=== PATIENT | male | born 1935 | race Caucasian/White ===

== ENCOUNTER 2019-05-05 15:42 | Inpatient (IN) | payer OTHER, BC ==
[~2019-05-05] VITALS: Ht 180.3 cm; Wt 68.5 kg
[2019-05-05 15:43] VITALS: BP 126/78
[2019-05-05 16:21] LABS: HEMATOCRIT 41.7 % (42.0-52.0); MCH 33.1 pg (26.0-34.0); MCHC 33.6 g/dL (28.0-37.0); MCV 98.6 fL (80.0-100.0); PLATELET COUNT 258 thou/uL (150-400); RBC 4.23 mil/uL (4.50-6.00); RDW 14.3 % (10.5-14.5); WBC 10.4 thou/uL (4.0-11.0)
[2019-05-05 16:29] LABS: ANION GAP 4 mmol/L (7-16); BUN 18 mg/dL (7-18); CHLORIDE 98 mmol/L (98-107); CO2 31 mmol/L (21-32); CREATININE 1.1 mg/dL (0.7-1.3); GLUCOSE 117 mg/dL (74-106); POTASSIUM 4.2 mmol/L (3.5-5.1); SODIUM 133 mmol/L (136-145)
[2019-05-05 16:37] LABS: ABSOLUTE NEUTROPHILS 7.6 thou/uL (1.4-8.2); ANISOCYTOSIS 1+; LARGE PLATELETS OCCASIONAL
[2019-05-05 16:38] LABS: POLYCHROMASIA OCCASIONAL
[2019-05-05 16:39] LABS: ALBUMIN 2.6 g/dL (3.4-5.0); MAGNESIUM 1.8 mg/dL (1.8-2.4); SGOT 34 U/L (15-37); SGPT 22 U/L (30-65); TOTAL BILIRUBIN 0.7 mg/dL (<0.1-1.0); TROPONIN-I <0.06 ng/mL (<0.06)
[2019-05-05] MEDS ORDERED: PROTONIX40 M1 PO ×2 (18:27→18:28)
[2019-05-05] MEDS ORDERED: SPIRIVA INH (18:28)
[2019-05-05] MEDS ORDERED: PLAVIX 75 MG TA75 M1 PO (18:29)
[2019-05-05] MEDS ORDERED: XALATAN2.5 ML OPHTHALMIC (18:29)
[2019-05-05] MEDS ORDERED: RANITIDINE 150150 M1 PO (18:29)
[2019-05-05] MEDS ORDERED: AZELASTINE137 MCG/0. NASAL (18:32)
[2019-05-05 19:28] LABS: ALBUMIN 2.8 g/dL (3.4-5.0); TOTAL PROTEIN 6.6 g/dL (6.4-8.2)
[2019-05-05 19:31] VITALS: BP 171/86
[2019-05-05 19:41] VITALS: BP 156/79
[2019-05-05 19:54] LABS: TSH 1.7 uIU/mL (0.358-3.740)
[2019-05-05 20:20] VITALS: BP 145/78
[2019-05-05 23:50] VITALS: BP 142/82
[2019-05-06 04:21] VITALS: BP 137/73
[2019-05-06 05:00] LABS: HEMATOCRIT 38.2 % (42.0-52.0); HEMOGLOBIN 12.7 gm/dL (14.0-18.0); MCH 33.2 pg (26.0-34.0); MCHC 33.4 g/dL (28.0-37.0); MCV 99.4 fL (80.0-100.0); RBC 3.84 mil/uL (4.50-6.00); RDW 14.6 % (10.5-14.5); WBC 8.5 thou/uL (4.0-11.0)
[2019-05-06 05:16] LABS: CALCIUM 8.7 mg/dL (8.5-10.1); CREATININE 1.2 mg/dL (0.7-1.3); MAGNESIUM 1.9 mg/dL (1.8-2.4); POTASSIUM 4.6 mmol/L (3.5-5.1)
[2019-05-06 07:49] VITALS: BP 116/71
--- NOTE | 2019-05-06 08:12 | EKG ---
[address] [place] [address] ELECTROCARDIOGRAM REPORT Name: RESENDIZJIMMYLAURIE MONTERROSO Room #: 359-P ADM IN M.R.#: [id number] Admission: 05/05/19 Attend Phys: Willian Villegas MD Discharge: Date of : 33 Report #: [id number] THIS REPORT FOR: //name// [facility] ED Test Date: 2019-05-05 Test Time: 16:06:20 Pat Name: JIMMY RESENDIZ Department: Room: 359 Gender: M Multimedia Production Assistant: : 1935 Requested By: June Persaud Order Number: [id number] MD: Fortino Rodriguez Measurements Intervals [place] Rate: 86 P: 47 OK: 142 QRS: 19 QRSD: 94 T: 46 QT: 372 QTc: 445 Interpretive Statements Sinus arrhythmia Normal tracing No previous ECG available for comparison Electronically Signed On 05-06-2019 8:11:50 CDT by Fortino Rodriguez [email or web address] <ELECTRONICALLY SIGNED> By: Fortino Rodriguez MD, [facility] 05/06/19 0811 1606 [id number] Fortino Rodriguez MD, FACC /EPI
[2019-05-06] MEDS ORDERED: CENTRUM SILVER1 EAC4 PO (08:22)
[2019-05-06 15:39] VITALS: BP 142/69
[2019-05-06 19:10] VITALS: BP 140/72
[2019-05-07 03:30] VITALS: BP 144/82
[2019-05-07 05:40] LABS: HEMATOCRIT 35.7 % (42.0-52.0); HEMOGLOBIN 11.7 gm/dL (14.0-18.0); MCH 32.2 pg (26.0-34.0); MCHC 32.6 g/dL (28.0-37.0); MCV 98.7 fL (80.0-100.0); RBC 3.62 mil/uL (4.50-6.00); RDW 14.6 % (10.5-14.5)
[2019-05-07 05:48] LABS: WBC 29.5 thou/uL (4.0-11.0)
[2019-05-07 06:03] LABS: CALCIUM 8.8 mg/dL (8.5-10.1); POTASSIUM 5.2 mmol/L (3.5-5.1)
--- NOTE | 2019-05-07 07:16 | HC ---
[facility] [place] [address] CONSULTATION Name: MARTÍNJIMMYLAURIE MONTERROSO Room #: 359-P ADM IN M.R.#: [id number] Admission: 05/05/19 Attend Phys: Willian Villegas MD Discharge: Date of : 33 Report #: [id number] THIS REPORT FOR: //name// CC: John Dejesus MD REASON FOR CONSULTATION: Abnormal CT and history of cancer. HISTORY OF PRESENT ILLNESS: The patient is an 83-year-old male followed by Dr. Shaq Escobar who gives a history of having had over the last 2 months progressive shortness of air, requiring higher amounts of oxygen. He denies any fever, does have a slight cough, mostly nonproductive and it is not that bad. No swallowing difficulties. No new arm or leg swelling. Does have a slightly dry, slightly sore throat, but it may be more from the breathing, slightly sore ribs sometimes. No new constipation, no new diarrhea. No new skin rash. No new leg swelling. He had a CAT scan done here that raises the question about, without comparison, extensive fibrotic changes throughout the lungs bilaterally without focal consolidating infiltrate or pleural effusion. They did see mediastinal and hilar adenopathy concerning for metastatic disease. Note, though that we do not have a CAT scan from , the report from 02/24/2019 talking about progression of peripheral and basal predominant honeycombing architectural distortion, stable mediastinal lymphadenopathy with some examples and we will gate this for comparison. PAST MEDICAL HISTORY: The patient has a history of pancreatic cancer, the tail of pancreas in 2002, underwent resection at [facility] including nephrectomy and splenectomy. Postoperatively, he had adjuvant chemo and radiation therapy and has been nonrecurrent. 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 He had resection. 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 No adjuvant therapy. In 02/2011, he had a lung recurrence of an adenocarcinomatous nodule, etiology unclear, underwent CyberKnife and has been disease free. In 01/2015, He had a bronchoscopy and in 06/2015, He was seen by GI for abdominal discomfort, a CT chest revealed increased mediastinal adenopathy. He had a ____ SUV of 7.3. He had a bronchoscopy and EBUS of mediastinal lymph nodes that have been negative and he has been followed since then, not knowing for sure whether this is reactive or inflammatory, but has been mostly stable, it is my understanding. He also has a history of sleep apnea. He uses CPAP at night. He also has a history of pulmonary fibrosis, has a history of COPD, has a history of coronary [facility] [address] [facility] [place] [address] CONSULTATION Name: JIMMY RESENDIZ Room #: 359-P [facility] IN M.R.#: [id number] Admission: 05/05/19 Attend Phys: Willian Villegas MD Discharge: Date of : 33 Report #: [id number] artery disease, status post stent in the past and then a celiac artery stent. SOCIAL HISTORY: Tobacco: Never smoker. Alcohol: None. PHYSICAL EXAMINATION: GENERAL: The patient appears his stated age. He is very conversant. His is present. VITAL SIGNS: Height is 5 feet 11 inches, which is 180.3 cm. Weight is 151 pounds, which is 68.5 kilograms. Blood pressure is 116/71, O2 sat of 93%, pulse 103, respirations 20 and temperature 97.5. MOOD: The patient is alert and very pleasant, conversant. LUNGS: He has distant lung sounds. I do not hear any Velcro type sounds. HEART: Appears regular rate. LYMPHATICS: No enlarged lymph nodes in the supraclavicular, cervical, axillary or inguinal region. ABDOMEN: Mostly soft. CHEST: He does have some rib changes along the left costochondral border, which he says is chronic in nature. EXTREMITIES: Without clubbing, cyanosis or edema. LABORATORY DATA: Here shows electrolytes normal, BUN 17, creatinine 1.2, glucose 117. Transaminases normal. Alkaline phosphatase 124, albumin 2.8. White count 10.4, hemoglobin 12.7, and platelets 261. Differential mostly unremarkable. TSH 1.7. Sed rate 65. Vitamin B12 is 478. CAT scan done here raised the question of the extensive fibrotic changes in the lymph nodes. ASSESSMENT AND PLAN: 1. Abnormal CT chest. We will ask that CT scan from be clouded over, I have already placed an order for comparison by [place] radiologist. 2. History of multiple cancers including the pancreatic cancer in 2002, melanoma in 2005, lung cancer in 2009 and 2011 nonrecurrent. 3. History of mediastinal and other adenopathy since about 2014, had been reportedly stable. We will await comparison films done here. 4. Pulmonary fibrosis. We will defer to Pulmonary. I am afraid that this may be progressive pulmonary fibrosis. The patient is now on continuous oxygen, did receive steroids last night, no antibiotics and I also do not see a clear indication for antibiotics at this time. 5. Weight loss and low albumin. The patient is trying to keep with diet. We need to encourage supplements. We will follow with you. 6. Coronary artery disease and stents. We will defer to others restarting some of his medications. Please continue clopidogrel. 7. Glaucoma, latanoprost as needed. <ELECTRONICALLY SIGNED> By: Bernard Angelo MD 05/07/19 0716 0926 0226 Bernard Angelo MD /nt
[2019-05-07 07:33] VITALS: BP 150/70
[2019-05-07 12:04] VITALS: BP 146/78
[2019-05-07 15:36] VITALS: BP 125/61
[2019-05-07 19:30] VITALS: BP 150/82
[2019-05-08 04:35] LABS: HEMATOCRIT 37.5 % (42.0-52.0); HEMOGLOBIN 11.9 gm/dL (14.0-18.0); MCH 31.4 pg (26.0-34.0); MCHC 31.7 g/dL (28.0-37.0); MCV 99.1 fL (80.0-100.0); RBC 3.79 mil/uL (4.50-6.00); RDW 14.8 % (10.5-14.5); WBC 24.3 thou/uL (4.0-11.0)
[2019-05-08 04:46] LABS: CALCIUM 8.9 mg/dL (8.5-10.1); MAGNESIUM 2.1 mg/dL (1.8-2.4); POTASSIUM 4.9 mmol/L (3.5-5.1)
[2019-05-08 04:50] VITALS: BP 153/99
[2019-05-08 08:35] VITALS: BP 144/82
[2019-05-08 15:29] VITALS: BP 133/75
[2019-05-08 19:57] VITALS: BP 128/75
[2019-05-09 04:10] VITALS: BP 145/87
[2019-05-09 05:27] LABS: CALCIUM 8.9 mg/dL (8.5-10.1); CREATININE 0.9 mg/dL (0.7-1.3); POTASSIUM 4.7 mmol/L (3.5-5.1)
[2019-05-09 05:38] LABS: HEMATOCRIT 37.9 % (42.0-52.0); HEMOGLOBIN 12.5 gm/dL (14.0-18.0); MCH 32.4 pg (26.0-34.0); MCV 98.4 fL (80.0-100.0); RBC 3.85 mil/uL (4.50-6.00); RDW 14.4 % (10.5-14.5); WBC 17.9 thou/uL (4.0-11.0)
[2019-05-09 07:30] VITALS: BP 137/92
[2019-05-09 16:21] VITALS: BP 153/98
[2019-05-09 19:50] VITALS: BP 151/84
[2019-05-10 04:45] VITALS: BP 150/82
[2019-05-10 05:49] LABS: ABSOLUTE NEUTROPHILS 13.2 thou/uL (1.4-8.2); HEMATOCRIT 38.5 % (42.0-52.0); HEMOGLOBIN 12.5 gm/dL (14.0-18.0); LYMPHOCYTES 3.7 % (24.0-44.0); MCHC 32.5 g/dL (28.0-37.0); MCV 98.3 fL (80.0-100.0); MONOCYTES 5.7 % (1.0-8.0); PLATELET COUNT 317 thou/uL (150-400); POLYS 90.6 % (36.0-66.0); RBC 3.92 mil/uL (4.50-6.00); RDW 14.3 % (10.5-14.5); WBC 14.6 thou/uL (4.0-11.0)
[2019-05-10 06:15] LABS: ALBUMIN 2.3 g/dL (3.4-5.0); CALCIUM 8.8 mg/dL (8.5-10.1); POTASSIUM 4.6 mmol/L (3.5-5.1); TOTAL BILIRUBIN 0.5 mg/dL (<0.1-1.0); TOTAL PROTEIN 5.6 g/dL (6.4-8.2)
[2019-05-10 08:06] VITALS: BP 176/93
--- NOTE | 2019-05-10 08:10 | EKG ---
[place] [address] [facility] [place] [address] ELECTROCARDIOGRAM REPORT Name: JIMMY RESENDIZ Room #: 359-P ADM IN M.R.#: [id number] Admission: 05/05/19 Attend Phys: iWllian Villegas MD Discharge: Date of : 33 Report #: [id number] THIS REPORT FOR: //name// [facility] Test Date: 2019-05-09 Test Time: 12:20:56 Pat Name: JIMMY RESENDIZ Department: Room: 359 P Gender: M Recruitment Internship: jlambertz : 1935 Requested By: Willian Villegas Order Number: [id number] MD: Fortino Rodriguez Measurements Intervals [place] Rate: 71 P: 43 VT: 134 QRS: 10 QRSD: 101 T: 23 QT: 380 QTc: 413 Interpretive Statements Sinus rhythm Premature ventricular and supraventricular complexes Compared to ECG 05/05/2019 16:06:20 Atrial premature complex(es) now present Ventricular premature complexes are now present Electronically Signed On 05-10-2019 8:10:20 CDT by Fortino Rodriguez [email or web address] <ELECTRONICALLY SIGNED> By: Fortino Rodriguez MD, [facility] 05/10/19 0810 1220 1220 Fortino Rodriguez MD, [facility] /EPI
--- NOTE | 2019-05-10 12:08 | 2DMMODE ---
[facility] [place] [address] 2 D/M-MODE ECHOCARDIOGRAM Name: JIMMY RESENDIZ Room #: 359-P [facility] IN M.R.#: [id number] Admission: 05/05/19 Attend Phys: Willian Villegas, Discharge: Date of : 33 Date of Service: 05/10/19 1207 Report #: [id number] THIS REPORT FOR: //name// APPROVED REPORT Study performed: 05/10/2019 11:18:38 EXAM: Comprehensive 2D, Doppler, and color-flow Echocardiogram Patient Location: Echo lab Room #: 359 Status: routine BSA: 1.87 HR: 71 bpm BP: 176/93 mmHg Rhythm: NSR/irregular Other Information Study Quality: Adequate Technically limited study due to lung disease. Indications Short of breath. Hx: COPD, cardiac stents, PVD, CA. 2D Dimensions RVDd: 34.79 mm IVSd: 10.67 (7-11mm) LVOT Diam: 20.80 (18-24mm) LVDd: 46.52 mm PWd: 11.33 (7-11mm) LVDs: 35.02 (25-40mm) Aortic Root: 34.93 mm Volumes Left Atrial Volume (Systole) Single Plane 4CH: 65.42 mL Single Plane 2CH: 70.14 mL LA ESV Index: 38.00 mL/m2 Aortic Valve AoV Peak Kamran.: 1.36 m/s AO Peak Gr.: 7.43 mmHg LVOT Max P.24 mmHg LVOT Max V: 1.03 m/s LUIS DANIEL Vmax: 2.56 cm2 Mitral Valve E/A Ratio: 0.8 MV Decel. Time: 203.31 ms [facility] [place] [address] [place] [address] 2 D/M-MODE ECHOCARDIOGRAM Name: MARTÍNJIMMYLAURIE MONTERROSO Room #: 359-P [facility] IN .R.#: [id number] Admission: 05/05/19 Attend Phys: Willian Villegas, Discharge: Date of : 33 Date of Service: 05/10/19 1207 Report #: [id number] MV E Max Kamran.: 0.66 m/s MV A Kamran.: 0.86 m/s MV PHT: 58.96 ms IVRT: 59.98 ms Pulmonary Valve PV Peak Kamran.: 0.56 m/s PV Peak Gr.: 1.24 mmHg Tricuspid Valve TR Peak Kamran.: 3.61 m/s RAP Estimate: 5.00 mmHg TR Peak Gr.: 52.17 mmHg PA Pressure: 57.00 mmHg Left Ventricle The left ventricle is normal size. There is normal LV segmental wall motion. There is normal left ventricular wall thickness. Left ventricular systolic function is normal. LVEF is 55-60%. Mild diastolic dysfunction is present (impaired relaxation pattern). Right Ventricle The right ventricle is normal size. The right ventricular systolic function is normal. Atria Left atrium is mildly dilated. The right atrium size is normal. Aortic Valve Aortic valve is calcified. Trace to mild aortic regurgitation. There is no aortic valvular stenosis. Mitral Valve Mitral valve leaflets are thickened. Mild mitral annular calcification. Moderate mitral regurgitation. Tricuspid Valve The tricuspid valve is normal in structure. Mild tricuspid regurgitation. Estimated PAP is 55-60mmHg. Pulmonic Valve Pulmonic valve is not well visualized. Great Vessels The aortic root is normal in size. Ascending aorta is not well visualized. IVC is normal in size and collapses >50% with [facility] [address] [place] [address] 2 D/M-MODE ECHOCARDIOGRAM Name: JIMMY RESENDIZ Room #: 359-P ADM IN M.R.#: [id number] Admission: 05/05/19 Attend Phys: Willian Villegas, Discharge: Date of : 33 Date of Service: 05/10/19 1207 Report #: [id number] inspiration. Pericardium No pericardial effusion. <Conclusion> The left ventricle is normal size. LVEF is 55-60%. Left atrium is mildly dilated. Aortic valve is calcified. Trace to mild aortic regurgitation. Mitral valve leaflets are thickened. Mild mitral annular calcification. Moderate mitral regurgitation. The tricuspid valve is normal in structure. Mild tricuspid regurgitation. Estimated PAP is 55-60mmHg. Pulmonic valve is not well visualized. No pericardial effusion. <ELECTRONICALLY SIGNED> By: Cal العلي MD 05/10/197 06 06 Cal العلي MD /INF
[2019-05-10 16:56] VITALS: BP 152/75
[2019-05-10 20:10] LABS: ANA INTERPRETATION Positive (())
[2019-05-10 20:45] VITALS: BP 173/80
[2019-05-11 04:45] VITALS: BP 135/68
[2019-05-11 08:12] VITALS: BP 135/64
[2019-05-11] MEDS ORDERED: PULMICORT0.5 MG/21 INH (12:10)
[2019-05-11] MEDS ORDERED: CARVEDILOL3.125 MG PO (12:10)
[2019-05-11] MEDS ORDERED: LEVALBUTER0.63 MG/3 INH ×2 (12:10)
[2019-05-11] MEDS ORDERED: IPRATROPIU0.2 MG/1 M INH ×2 (12:10)
[2019-05-11] MEDS ORDERED: MUCINEX600 MG PO (12:10)
[2019-05-11] MEDS ORDERED: SOLU-MEDRO40 MG/1 M1 IV PUSH (12:13)
[2019-05-11 15:16] VITALS: BP 154/81
[2019-05-11 17:45] VITALS: BP 154/81
[2019-05-11 22:06] LABS: ADENOVIRUS Negative (Negative); INFLUENZA A Negative (Negative); INFLUENZA B Negative (Negative); METAPNEUMOVIRUS Negative (Negative); PARAINFLUENZA 1 Negative (Negative); PARAINFLUENZA 2 Negative (Negative); PARAINFLUENZA 3 Negative (Negative); RHINOVIRUS Negative (Negative); RSV A Negative (Negative); RSV B Negative (Negative)
== END 2019-05-11 18:24 | DRG 189 ==
LOC: ER 15:42 → 3W 18:49 → EROBS 18:49 → 3W 18:49
PROVIDERS: Pediatrics; Physician Assistant; ADMIT Internal Medicine
DX: J96.21 Acute and chronic respiratory failure with hypoxia (principal); J18.1 Lobar pneumonia, unspecified organism; E43 Unspecified severe protein-calorie malnutrition; J96.22 Acute and chronic respiratory failure with hypercapnia; J43.9 Emphysema, unspecified; I25.10 Atherosclerotic heart disease of native coronary artery without angina pectoris; J84.10 Pulmonary fibrosis, unspecified; H40.9 Unspecified glaucoma; K21.9 Gastro-esophageal reflux disease without esophagitis; R59.0 Localized enlarged lymph nodes; T38.0X5A Adverse effect of glucocorticoids and synthetic analogues, initial encounter; D72.829 Elevated white blood cell count, unspecified; I10 Essential (primary) hypertension; Z68.21 Body mass index [BMI] 21.0-21.9, adult; Z90.2 Acquired absence of lung [part of]; Z85.07 Personal history of malignant neoplasm of pancreas; Z87.891 Personal history of nicotine dependence; Z90.5 Acquired absence of kidney; Z90.81 Acquired absence of spleen; Z92.21 Personal history of antineoplastic chemotherapy; Z92.3 Personal history of irradiation; Z85.820 Personal history of malignant melanoma of skin; Z85.118 Personal history of other malignant neoplasm of bronchus and lung; Z95.5 Presence of coronary angioplasty implant and graft; Z79.02 Long term (current) use of antithrombotics/antiplatelets; Z79.899 Other long term (current) drug therapy; Y92.89 Other specified places as the place of occurrence of the external cause
CPT/HCPCS: 10879

== ENCOUNTER 2019-05-11 14:55 | Inpatient (IN) | payer OTHER, BC ==
[~2019-05-11] VITALS: Ht 180.3 cm; Wt 68.5 kg
--- NOTE | ~2019-05-11 | H ---
[facility] [place] [address] HISTORY AND PHYSICAL Name: JIMMY RESENDIZ Room #: PRE IN M.R.#: [id number] Admission: Attend Phys: Rashaun Thorne MD Discharge: Date of : 33 Report #: [id number] THIS REPORT FOR: //name// CC: John Thorne DATE OF SERVICE: 05/11/2019 HISTORY OF PRESENT ILLNESS: This is an 83-year-old male admitted to the hospital with qdgza-cb-isvowfw respiratory failure. At home, he requires 2 liters of O2. His oxygen was increased from 5 to 8 liters here at the hospital, he is requiring IV steroids and nebulizers. He is being followed by Pulmonary Services, Hospitalist services and Oncology along with Geriatrics. The patient has history of lung cancer, pancreatic cancer and melanoma. He was seen to have a hilar/mediastinal lymphadenopathy for which Dr. Angelo believes is stable at this time. Due to his decline in functional mobility, we are admitting to inpatient rehab for further physical and occupational therapies along with the medical management. Today, the patient reports ongoing shortness of air and poor endurance due to his respiratory status. He denies any coughing or chest pain. He denies headache or dizziness. He denies nausea, vomiting or constipation. He reports appetite is fair. He denies any other pains. PAST MEDICAL HISTORY: Pancreatic cancer in 2002, melanoma 2005, lobectomy on the right side 2009, CyberKnife to middle lobe on the right side 2010, cardiac stents 2017. Celiac artery stent 2019, pulmonary fibrosis, COPD. HABITS: He is a nonsmoker. No alcohol use. CODE STATUS: Full code. SOCIAL HISTORY: The patient lives at home with his . He lives a very active lifestyle. He does yard work, he goes to anabaptism. He is very active in the community. He was independent with ADLs and IADLs. He utilized no assistive device. He denies any history of falls. The patient still drives. He does have a CPAP for bedtime at home. ALLERGIES: No known drug allergies. CURRENT MEDICATIONS: Colace 100 mg p.r.n., Tylenol 650 q.4 hours p.r.n., Solu-Medrol 40 mg t.i.d. IV push, Protonix 40 mg twice a day, Xopenex q.4 hours while awake, budesonide 0.5 mg b.i.d. DuoNeb q.4 hours, Coreg 3.125 mg twice a day, Plavix 75 mg daily, Mucinex 1200 mg twice a day, Lovenox 30 mg subcutaneous at bedtime, latanoprost 1 drop at bedtime eyes, MiraLax 17 grams p.r.n. REVIEW OF SYSTEMS: Remainder of his 12-point review of systems is negative except as listed in HPI. [address] [address] HISTORY AND PHYSICAL Name: JIMMY RESENDIZ Room #: PRE IN ..#: [id number] Admission: Attend Phys: Rashaun Thorne MD Discharge: Date of : 33 Report #: [id number] PHYSICAL EXAMINATION: VITAL SIGNS: 154/81, respirations 20, pulse 79, temperature 97.6. He is 97% O2 sat on 6 liters. GENERAL: He is awake, alert. He is oriented x 4. He is in no acute distress. He is able to talk in full sentences while at rest. HEENT: Head is normocephalic. Eyes: EOMs are intact. No icterus. ENT: No sinus tenderness, no pharyngitis. CHEST: Lungs are diminished and tight throughout. CARDIAC: Regular rate and rhythm. S1, S2. ABDOMEN: Bowel sounds are positive. Soft, nontender, nondistended. GENITOURINARY: No CVA tenderness. EXTREMITIES: Functional range of motion upper and lower extremities. Pill Coater are equal. Upper extremity strength is grossly 4/5, able to lift lower extremities antigravity. No calf tenderness. Negative Homans sign. No edema. Sit to stand with standby assist. He is min assist to ambulate 50 feet with no assistive device. His O2 sat does drop into the 70s. He takes over 3 minutes to recover having to increase his O2 up to 8 liters. The patient requires cues for energy conservation due to O2 sat dropping. NEUROLOGIC: Cranial nerves 2-12 grossly intact. SKIN: Warm, dry and intact. PSYCHIATRIC: Pleasant affect. ASSESSMENT: 1. Ojcko-ch-dzgmqrm respiratory failure secondary to pulmonary fibrosis. 2. Acute exacerbation of chronic obstructive pulmonary disease. 3. Pulmonary rehabilitation. 4. Severe protein calorie malnutrition. 5. Mediastinal and hilar lymphadenopathy. 6. History of pancreatic cancer. 7. History of lung cancer. 8. History of melanoma. 9. History of coronary artery disease. PLAN: The patient has been admitted to acute inpatient rehabilitation for physical and occupational therapies. He will continue to have his customer care voice consultant follow along with Oncology, hospitalist, Geriatrics and a Neuropsychology evaluation. He will have respiratory therapy treatments throughout the day. We will work on titrating his oxygen to maintain O2 sat greater than 90% with and without activity. He will have incentive spirometry for further prophylaxis. He will have SCDs and Lovenox. The patient will be on fall precautions with chair and bed alarms in place. He will have a dietitian consult to help with [facility] [place] [address] [address] [place] [address] HISTORY AND PHYSICAL Name: JIMMY RESENDIZ Room #: PRE IN M.R.#: [id number] Admission: Attend Phys: Rashaun Thorne MD Discharge: Date of : 33 Report #: [id number] his weight loss. He will have a team conference next Friday. Please see extensive orders. By: 1658 1716 OXANA Shirley /nt
[~2019-05-11 14:55] MED LIST: AZELASTINE137 MCG/0. NASAL; CARVEDILOL3.125 MG PO; CENTRUM SILVER1 EAC4 PO; IPRATROPIU0.2 MG/1 M INH; LEVALBUTER0.63 MG/3 INH; MUCINEX600 MG PO; PLAVIX 75 MG TA75 M1 PO; PROTONIX40 M1 PO; PULMICORT0.5 MG/21 INH; RANITIDINE 150150 M1 PO; SOLU-MEDRO40 MG/1 M1 IV PUSH; SPIRIVA INH; XALATAN2.5 ML OPHTHALMIC
[2019-05-11 18:30] VITALS: BP 147/67
[2019-05-11 19:50] VITALS: BP 155/77
--- NOTE | 2019-05-12 03:11 | NUR ---
pt arrived to unit approx 1830 on . recd report from day RN. pt in room sitting up in recliner, 02 at 5l per n/c. pt alert and oriented x4, appropriate and cooperative. spouse here with pt and left approx 1999. pt pleasant and cooperative. pt up to bathroom with standby assist and O2. pt took hs meds with water tolerating well. pt appears to be sleeping soundly with hourly rounding checks. bed alarm on and call light in reach. will continue to monitor.
[2019-05-12 06:20] LABS: HEMATOCRIT 41.4 % (42.0-52.0); HEMOGLOBIN 13.4 gm/dL (14.0-18.0); MCHC 32.4 g/dL (28.0-37.0); MCV 98.7 fL (80.0-100.0); RBC 4.19 mil/uL (4.50-6.00); RDW 13.9 % (10.5-14.5); WBC 16.5 thou/uL (4.0-11.0)
[2019-05-12 06:32] LABS: CALCIUM 8.9 mg/dL (8.5-10.1); CREATININE 0.9 mg/dL (0.7-1.3); POTASSIUM 4.5 mmol/L (3.5-5.1)
[2019-05-12 07:45] VITALS: BP 151/76
--- NOTE | 2019-05-12 10:34 | NUR ---
ASSUMED CARE AT 0700. PATIENT IS ALERT AND ORIENTED X4. PATIENT KENNY'S, CONTOUR STITCHER ARE EQUAL. LUNGS ARE CLEAR. ABD IS SOFT WITH BSX4. UP TO BSC TO VOID MARIO COLORED URINE. UP IN W/C FOR MEALS. FALL AND SAFETY PROTOCOLS IN PLACE. DENIES PAIN AT THIS TIME. CONTINUES T0 PROGRESS TOWARDS D/C GOALS. WILL CONTINUE TO MONITER.
--- NOTE | 2019-05-12 10:48 | NUR ---
ASSUMED CARE AT 0700. PATIENT IS ALERT AND ORIENTED X4. PATIENT KENNY'S. EVAL DONE BY PRand. PATIENT IS NOW MOD/I IN ROOM. LUNGS ARE COARSE AND DEMINISHED IN THE BASES ON THE LEFT. PATIENT CONTINUES ON RESPIRATORY TX. ABD IS SOFT WITH BSX4. PATIENT HAD BM TODAY. UP ON SIDE OF THE BED FOR MEALS. FALL AND SAFETY PROTOCOLS IN PLACE. DENIES ANY PAIN AT THIS TIME. 02 AT 5L PER N/C. 02 INCREASED TO 6L WITH AMBULATION. WILL CONTINUE TO MONITER.
--- NOTE | 2019-05-12 13:26 | NUR ---
chart review, pt was independ prior to hospital. pt lives with spouse, with steps, and stairs. he had to have increased needs for more oxygen. has home oxygen and cpap at home. still drives and manage own medication. no past rehab or hh in past, per chart. will cont following as needed for dc needs.
[2019-05-12 19:20] VITALS: BP 121/54
[2019-05-13 00:08] LABS: GLYCOHEMOGLOBIN (HGB A1C) 6.4 % (4.8-5.6)
--- NOTE | 2019-05-13 03:42 | NUR ---
ASSUMED CARES AT 1900. PT AWAKE, ALERT AND ORIENTED*4. DENIES PAIN. VITALS REMAIN STABLE. LS CLEAR/ DIMINISHED, O2 SATS >92% ON 5L OXYGEN VIA NC. PT RECEIVING BREATHING RX AND CPT SCHEDULED. CLOTRIMAZOLE ADMINISTERED SCHEDULED FOR ORAL YEAST INFECTION. IV ON LEFT UPPER ARM REMAINS INTACT AND PATENT, SOLUMEDROL ADMINSITERED SCHEDULED. PT IS MODIFIED INDEPENDENT IN ROOM, ROOM NEAR NURSE'S DESK. FREQUENT VISUAL CHECKS. CALL LIGHT WITHIN REACH
[2019-05-13 07:50] VITALS: BP 138/68
[2019-05-13 12:00] VITALS: BP 128/66
--- NOTE | 2019-05-13 19:34 | NUR ---
ASSUMED CARE OF PT AT 0715. PT IS A&OX4. BRADYCARDIC THIS SHIFT AND CARVEDILOL WAS HELD THIS MORNING, PT IS ASYMPTOMATIC, PROVIDER AWARE. PT SITTING AT BEDSIDE MOST OF SHIFT WITH FAMILY AND FRIENDS THROUGHOUT SHIFT. PT DENIES PAIN AND PARTICIPTED IN SCHEDULED THERAPIES. MOD I IN ROOM. O2 >90% ON 5-6L O2 VIA NC. IV IN RIGHT UPPER ARM IS WITHOUT REDNESS, EDEMA, OR DRAINAGE, DRESSING IS C/D/I, FLUSHES APPROPRIATELY. ENCOURAGED FLUIDS AND NUTRITION. FALL PRECAUTIONS IN PLACE AND NURSING WILL CONTINUE TO MONITOR.
[2019-05-13 20:25] VITALS: BP 145/65
--- NOTE | 2019-05-14 02:09 | NUR ---
ASSUMED CARES AT 1900. PT AWAKE, ALERT AND ORIENTED*4. SOB NOTED WITH EXERCION. PT DESATS TO LOW 80'S WITH ACTIVITY NEEDING 6-8L OF OXYGEN, TAKES 1-2MINS AFTER REST FOR SATS TO STABILIZE. LS COARSE, PT HAD A PRODUCTIVE COUGH. BREATHING TREATMENTS ADMINISTERED SCHEDULED. ON 5L OXYGEN WHEN ASLEEP AND TOLERATES WELL. ALL OTHER VITALS REMAIN STABLE. PT SLEPT WELL THROUGH THE NIGHT. DENIES PAIN. PT REMAINS MOD I. IN ROOM. FREQUENT VISUAL CHECKS. CALL LIGHT WITHIN REACH.
[2019-05-14 07:30] VITALS: BP 148/82
--- NOTE | 2019-05-14 17:58 | NUR ---
ASSUMED CARE OF PT AT 0715. PT IS A&OX4 AND VITAL SIGNS ARE STABLE. ACCU CHECKS ACHS AND MANAGED WITH INSULIN PER ORDERS. MOD I IN ROOM. NURSING WORKING TO WEAN PT O2. 5-6L AT START OF SHIFT NOW ON 3L NC AT REST MAINTINING SATS AT 94-96%. REQUEST 1 HR BETWEEN THERAPY SESSIONS TO ALLOW FOR ADEQUATE REST PERIODS. DENIES PAIN AND PARTICIPATED IN SCHEDULED THERAPIES. IV IN L UPPER ARM IS WITHOUT DRAINAGE, REDNESS, OR EDEMA, DRESSING C/D/I, FLUSHES APPRIOPRAITELY. FALL PRECAUTIONS IN PLACE AND NURSING WILL CONTINUE TO MONITOR.
[2019-05-14 20:00] VITALS: BP 142/71
--- NOTE | 2019-05-15 02:00 | NUR ---
assumed care at approx 1900 evening 05/14. pt alert and oriented x4, pleasant and cooperative. 02 at 3L per n/c. pt modified indep in his room tolerating well. pt tolerated hs meds with no problems. pt appears to be sleeping off and on getting up to go to the bathroom. pt close to the nurses station and call light in reach. will continue to monitor.
[2019-05-15 08:00] VITALS: BP 151/83
--- NOTE | 2019-05-15 12:30 | NUR ---
ASSUMED CARE OF PT AT 0715. PT IS A&OX4 AND VITAL SIGNS ARE STABLE. PT DENIES PAIN AND PARTICIPATED IN SCHEDULED THERAPIES. PER REPORT PT TOLERATED 3L O2 VIA NC LAST NIGHT. PT HAD TO BE INCREASED TO 3.5L DURING THERAPIES, BUT AT REST WAS ABLE TO MAINTAIN O2 SATS >92% ON 3L. ACCU CHECKS ACHS AND MANAGED WITH INSULIN LDSS. PT MOD I IN ROOM. AT BEDSIDE. FALL PRECAUTIONS IN PLACE AND NURSING WILL CONTINUE TO MONITOR.
--- NOTE | 2019-05-15 18:09 | NUR ---
AT APPROXIMATELY 1745 PT CALLED THIS NURSE TO ROOM AND REPORTED SUDDEN NEW ONSET OF SHARP PAIN IN BILATERAL LOWER EXTREMITIES. PT REPORTS THAT THE PAIN IS STABBING 7/10, PAIN IS CONSTANT AND IS INCREASED BY MOVEMENT OF LOWER EXTREMITIES. PEDAL PULSES +2, EXTREMITIES COOL, PALE, CAPILLARY REFILL LESS THAN 3 SECONDS. +2 PITTING EDEMA NOTED IN BILATERAL FEET, FEET ELEVATED WHILE PT IN BED. PULSE OX READING 93% WITH PT AT REST ON 2.5L O2 NC. B/P 146/66, HR 64, TEMP 98.5, RR 22. DR. LEONEL BETANCOURT, AWAITING CALL BACK. IS AT BEDSIDE AND NURSING WILL CONTINUE TO MONITOR PT AND ATTEMPT TO CONTACT PROVIDER NEEDED.
[2019-05-15 20:00] VITALS: BP 134/76
--- NOTE | 2019-05-16 01:51 | NUR ---
assumed care at approx 1900 evening 05/15. pt alert and oriented x4, pleasant and cooperative. pt c/o pain to groin bilaterally. Tylenol po given as ordered and pt reported pain relief. 02 at 2.5 L n/c. pt modified independent in room tolerating well. pt took hs meds with water tolerating well. pt appears to be sleeping soundly with hourly rounding checks. call light in reach. will continue to monitor.
[2019-05-16 07:16] VITALS: BP 146/70
--- NOTE | 2019-05-16 10:39 | NUR ---
ASSUMED CARE AT 0700. PATIENT IS ALERT AND ORIENTED X4. PATIENT JEREMY, RANGELAND MANAGEMENT SPECIALIST ARE EQUAL. LUNG IS DEMINISHED ON LEFT. PATIENT HAS NO LUNG ON THE RIGHT R/T HX OF CANCER. PATIENT HAS IV IN HIS LEFT UPPER ARM. IV TEAM HERE TO RE DRESS IV. PATIENT HAS 02 AT 2.5 L PER N/C.PATIENT IS MOD/I IN ROOM. ABD IS SOFT WITH BSX4. PATIENT VOIDING MARIO COLORED URINE. FALL AND SAFETY PROTOCOLS IN PLACE. DENIES PAIN AT THIS TIME. CONTINUES TO PROGESSS TOWARDS D/C GOALS. WILL CONTINUE TO MONITER. IV SITER WITHOUT REDNESS OR SWELLING.
[2019-05-16 20:50] VITALS: BP 126/83
--- NOTE | 2019-05-17 00:38 | NUR ---
PT ASSESSMENT COMPLETED AND VSS. MEDS GIVEN ORDERED AND WELL TOLERATED. UPSET STOMACH THIS EVENING. TUMS ORDERED AND HELPFUL. UP TO THE BATHROOM - STEADY. MOD I. SAT WNL ON 2.5 L NC. RT PT. SLEEPING WELL AT THIS TIME. WILL CONTINUE TO MONITOR FREQUENTY.
[2019-05-17 08:10] VITALS: BP 135/68
--- NOTE | 2019-05-17 15:07 | NUR ---
ASSUMED CARE AT 0700. DIDN'T SLEPT WELL LAST NIGHT D/T THROWING UP. DENIES N/V TODAY. PATIENT IS ALERT AND ORIENTED X4. ABLE TO VOICE HIS NEEDS. REASSESSMENT PER CHART. STEEL CONSTRUCTION WORKER ARE EQUAL. LUNG IS DIMINISHED ON LEFT. PATIENT HAS NO LUNG ON THE RIGHT R/T HX OF CANCER. CONTINUE TO BE ON METHYLPREDNISONE PER DR. HOLLY. PATIENT HAS IV IN HIS LEFT UPPER ARM PATENT AND INTACT. PATIENT HAS 02 AT 2.5 L PER N/C AND UP TO 6L WITH ACTIVITY. PATIENT IS MOD/I IN ROOM. ABD IS SOFT WITH BSX4. NO BM TODAY, REQUESTS FOR STOOL SOFTENER. C/O ABD PAIN EARLIER AFTER THERAPIST. PRN TYELNOL GIVEN. PATIENT VOIDING MARIO COLORED URINE. FALL AND SAFETY PROTOCOLS IN PLACE. DENIES PAIN AT THIS TIME. CONTINUES TO PROGESSS TOWARDS D/C GOALS. WILL CONTINUE TO MONITOR. FRIEND AT BEDSIDE.
[2019-05-17 19:45] VITALS: BP 131/70
--- NOTE | 2019-05-18 02:50 | NUR ---
ASSUMED CARES AT 1900. PT AWAKE, ALERT AND ORIENTED*4. C/O OF RIBCAGE/ UPPER ABDOMINAL PAIN, PT USING HEAT AND STATED THAT IT HELPED. LS CLEAR, ON 3L OXYGEN WITH SATS >95%. BREATHING TREATMENTS AT BEDTIME. PT BLEEDING ON SITE AFTER LOVENOX SHOT (ABDOMEN LLQ), GAUZE APPLIED TO PROVIDE PRESSURE. PT REMAINS MOD I IN ROOM, MANAGING O2 TUBING WELL. Q1H VISUAL CHECKS. CALL LIGHT WITHIN REACH. ROOM NEAR NURSE'S DESK.
[2019-05-18 07:30] VITALS: BP 138/77
--- NOTE | 2019-05-18 07:56 | HC ---
[facility] [place] [address] CONSULTATION Name: MARTÍNJIMMYLAURIE MONTERROSO Room #: 514-P ADM IN M.R.#: [id number] Admission: 05/11/19 Attend Phys: Rashaun Thorne MD Discharge: Date of : 33 Report #: [id number] THIS REPORT FOR: //name// CC: John Escobar MD REASON FOR CONSULTATION: History of multiple cancers and abnormal CAT scan. HISTORY OF PRESENT ILLNESS: The patient is a gentleman with a history of multiple cancers including lung pancreatic melanoma who was admitted for shortness of air and original CAT scan raised questionable lymphadenopathy. We were able to get the CAT scans from from January for comparison and these were thought to be mostly stable, some slight enlargement, but the patient also may have had a pneumonitis contributing to reactive component. Since that time, the patient had been on the acute setting and then recently transferred up to rehabilitation. He has been improving with respiratory rate though he does have thrush today. The patient does not have any significant pain, any nausea or vomiting. Appetite has been a little bit off. No fevers or chills. No dysuria. No new skin rash except for mild ecchymosis related to blood draws. No significant weight change since admitted to the hospital. 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 Postoperatively, he had chemo and radiation therapy, has been non-recurrent. 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 He had resection. 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 It was stopped. In 2009, he had a non-small cell carcinoma right lung and had a lobectomy. He had no adjuvant therapy. In February 2011, he had a lung recurrence of an adenocarcinomatous nodule and underwent CyberKnife and had been disease free since that time. In January 2015, he had a bronchoscopy. In June 2015, he was seen for abdominal discomfort and a CT chest revealed increased mediastinal lymph nodes. PET scan was avid with an SUV of 7.3. Etiology was not found on bronchoscopy and other tests and he has been mostly stable since that time. He also has a history of sleep apnea and uses CPAP. He also has a history of pulmonary fibrosis which is thought to be slightly progressive. It is my understanding. Also, history of COPD. Also, history of coronary artery disease, status post stent, I think in the celiac artery and maybe in the coronary, would have to check. SOCIAL HISTORY: Never smoker. No recent alcohol. No street drugs. [facility] [address] [place] [address] CONSULTATION Name: JIMMY RESENDIZ Room #: 514-P [facility] IN M.R.#: [id number] Admission: 05/11/19 Attend Phys: Rashaun Thorne MD Discharge: Date of : 33 Report #: [id number] MEDICATIONS: At this time, currently include multivitamins with iron, clopidogrel 75 daily, carvedilol 3.125 b.i.d., budesonide 0.5 respiratory therapy b.i.d., levalbuterol 0.63 mg respiratory therapy q.4 hours while awake, ipratropium 0.5 mg respiratory therapy q.4, methylprednisolone 40 mg t.i.d. IV, pantoprazole 40 b.i.d. p.o., guaifenesin 1200 mg b.i.d. p.o., latanoprost eyedrops at bedtime and then p.r.n. inhalation therapies. I have now added clotrimazole for thrush. PHYSICAL EXAMINATION: GENERAL: The patient appears his stated age. VITAL SIGNS: Height is 5 feet 11 inches, which is 180.3 cm. Weight is 152 pounds, which is 68.99 kilograms. Blood pressure recently 155/77, O2 sat 92%, respirations 17, pulse 60, afebrile. He is usually on between 2 and 3 liters or sometimes 5 liters at night if I understand correctly and also with dyspnea. MOOD: The patient is alert, pleasant and conversant. NEUROLOGIC: Face is symmetrical, is moving all extremities, thought and speech pattern appear to be normal. SKIN: Has several signs of ecchymosis related to blood draws, etc., and also steroids. HEENT: Oropharynx has obvious thrush today. LUNGS: Mostly clear though slightly distant, may be some slight rhonchi and the bases are clear, may be some slight Velcro type sounds in the left base at times. LYMPHATICS: No enlarged lymph nodes in the supraclavicular, cervical, axillary or inguinal region. HEART: Appears regular rate. ABDOMEN: Scaphoid, no masses. EXTREMITIES: Without clubbing or cyanosis. There may be trace edema. ASSESSMENT AND PLAN: 1. Abnormal CT chest with lymphadenopathy, mostly stable. Recently, it is perhaps some slight progression versus reactive. We would consider repeat CAT scan as outpatient in 2 or [address] Shaq Escobar. 2. History of pancreatic cancer in 2002, non-recurrent. 3. History of right upper arm node positive melanoma in 2005, non-recurrent. 4. History of right lung cancer and right lung cancer recurrence -- no current evidence of disease. 5. Pulmonary fibrosis. Continues with steroids, flutter valve, percussion vest, aerosols, etc. per Pulmonary. 6. Hypoxic. Continue oxygen supplementation. 7. Obstructive sleep apnea. Continue continuous positive airway pressure. 8. Thrush. We had talked about doing fluconazole. We will now do because of drug interaction with Plavix, we will use Mycelex Troches. [facility] [address] [place] [address] CONSULTATION Name: JIMMY RESENDIZ Room #: 514-P [facility] IN M.R.#: [id number] Admission: 05/11/19 Attend Phys: Rashaun Thorne MD Discharge: Date of : 33 Report #: [id number] 9. Protein-calorie malnutrition supplements. 10. Coronary artery disease, on Plavix. We will follow along. <ELECTRONICALLY SIGNED> By: Bernard Angelo MD 05/18/19 0756 0724 0027 Bernard Angelo MD /nt
[2019-05-18 09:38] LABS: ABSOLUTE NEUTROPHILS 17.8 thou/uL (1.4-8.2); BASOPHILS 0.3 % (0.0-2.0); HEMATOCRIT 41.7 % (42.0-52.0); HEMOGLOBIN 13.7 gm/dL (14.0-18.0); LYMPHOCYTES 4.1 % (24.0-44.0); MCH 32.4 pg (26.0-34.0); MCHC 32.9 g/dL (28.0-37.0); MCV 98.5 fL (80.0-100.0); MONOCYTES 2.8 % (1.0-8.0); PLATELET COUNT 280 thou/uL (150-400); POLYS 92.8 % (36.0-66.0); RBC 4.24 mil/uL (4.50-6.00); RDW 14.9 % (10.5-14.5); WBC 19.2 thou/uL (4.0-11.0)
[2019-05-18 11:29] LABS: ALBUMIN 2.8 g/dL (3.4-5.0); CALCIUM 8.9 mg/dL (8.5-10.1); CREATININE 1.2 mg/dL (0.7-1.3); POTASSIUM 4.5 mmol/L (3.5-5.1); TOTAL BILIRUBIN 0.9 mg/dL (<0.1-1.0); TOTAL PROTEIN 6.1 g/dL (6.4-8.2)
--- NOTE | 2019-05-18 13:25 | NUR ---
team meeting, recommendation: [facility] to drive until pt cleared by pcp . no dme needs. follow up with veronica pate after dc, pt to transfer from to outpt rehab.
--- NOTE | 2019-05-18 16:32 | NUR ---
ASSUMED CARE AT 0700. REPORTS SLEPT WELL. HAD QUIET OF BLEEDING ISSUE FROM LOVENOX INJECTION. NOTIFIED [facility] FOR CBC. [address]. BLEEDING STOPPED. PATIENT IS ALERT AND ORIENTED X4. ABLE TO VOICE HIS NEEDS. REASSESSMENT PER CHART. LABS REVIEWED. METHYLPREDNISONE STOPPED. IV REMOVED PER DR. HOLLY. PATIENT HAS 02 AT 3L. PATIENT IS MOD/I IN ROOM. ABD IS SOFT WITH BSX4. COLACE GIVEN. C/O ABD PAIN PRN TYELNOL GIVEN. PATIENT VOIDING MARIO COLORED URINE. FALL AND SAFETY PROTOCOLS IN PLACE. DENIES PAIN AT THIS TIME. TEAM CONFERENCE TODAY. PT WILL D/C HOME ON FRIDAY WITH PULMONARY REHAB. CALLED AND NOTIFIED DR. HOLLY ABOUT DISCHARGE DATE AND NEED FOR PULMONARY REHAB PRESCRIPTION. CONTINUES TO PROGESSS TOWARDS D/C GOALS. WILL CONTINUE TO MONITOR.
[2019-05-18 19:40] VITALS: BP 138/64
--- NOTE | 2019-05-18 21:47 | NUR ---
ASSUMED CARES AT 1900. PT AWAKE, ALERT AND ORIENTED*4. DENIES PAIN. LS REMAIN CLEAR WITH EQUAL AERATION, ON 3L OXYGEN VIA NC WITH SATS >95%, SOB WITH EXERCION BUT RECOVERS QUICKLY. DESATURATION WITH ACTIVITY UPTO 80%, IMPROVES TO MID 90'S WITH REST. BREATHING RX ADMINISTERED AT BEDTIME. PT REMAINS MODIFIED INDEPENDENT IN ROOM, FREQUENT VISUAL CHECKS. CALL LIGHT WITHIN REACH
[2019-05-19 08:00] VITALS: BP 101/52
--- NOTE | 2019-05-19 13:30 | NUR ---
pt had question on dcp, hh vs snf vs outpulm rehab and that michelle is not feeling good and is weaker today, wonder if he needs some rehab at [facility] then [facility] with [facility] then to outpt pulm rehab when michelle is strong enough , if could talk with dr and see what they think."/ cm sat with will she talked, active listen and support during visit. education that if change to hh can set it up for home with [facility]. " thank you for your time"/
--- NOTE | 2019-05-19 16:35 | NUR ---
ASSUMED CARE OF PT AT 0715. PT IS A&OX4 AND VITAL SIGNS ARE STABLE. PT IS MOD I IN ROOM. MAINTAINING O2 AT >90% WITH 3L O2 VIA NC. DENIES PAIN AND PARTICIPATED IN SCHEDULED THERAPIES. ACCU CHECKS AC/HS AND MANAGED WITH INSULIN PER ORDERS. FALL PRECAUITONS IN PLACE AND NURSING WILL CONTINUE TO MONITOR.
--- NOTE | 2019-05-19 16:53 | NUR ---
Patient participated in community reintegration on 05/19/19 with OT. Refer to documentation by OT.
[2019-05-19 19:55] VITALS: BP 126/66
--- NOTE | 2019-05-20 02:13 | NUR ---
ASSESSMENT: PT'S OXYGEN WAS TITRATED DOWN TO 2 LITERS FROM 3 LITERS. SATS REMAIN > 92%. DENIES FEELING SOB AND HAVING PAIN. BREATHING TX GIVEN AT THE BEGINNING OF THE SHIFT. PT SLEEPING MOST OF THE NIGHT. DC'ING TO HOME LATER TODAY. VSS, AFEBRILE. GOOD PROGRESS TOWARDS DC GOALS, WILL CONTINUE TO MONITOR.
[2019-05-20 08:00] VITALS: BP 110/65
[2019-05-20] MEDS ORDERED: COLACE100 MG PO (08:51)
[2019-05-20] MEDS ORDERED: PREDNISONE 20 M20 MG PO (08:51)
[2019-05-20] MEDS ORDERED: MUCINEX600 MG PO (08:51)
[2019-05-20] MEDS ORDERED: LASIX 40 MG TAB40 M2 PO (08:51)
[2019-05-20] MEDS ORDERED: CARVEDILOL3.125 MG PO (08:51)
[2019-05-20] MEDS ORDERED: MIRALAX17 GM PO (08:51)
[2019-05-20] MEDS ORDERED: TYLENOL325 MG PO (08:51)
[2019-05-20] MEDS ORDERED: FLOMAX0.4 MG PO (08:51)
[2019-05-20] MEDS ORDERED: IPRATROPIU0.2 MG/1 M INH ×3 (09:28→18:14)
[2019-05-20] MEDS ORDERED: NEBULIZER MISCELL (09:28)
[2019-05-20] MEDS ORDERED: LEVALBUTER0.63 MG/3 INH ×3 (09:28→18:14)
--- NOTE | 2019-05-20 10:30 | NUR ---
rx for neb home use. cm faxed to [facility] as that is where pt gets home o2 from. cm called spoke with [facility] "no problem it is same day delivery"/per tram.
--- NOTE | 2019-05-20 10:31 | NUR ---
DISCHARGE PLANNING. PATIENT TO DISCHARGE TODAY TO HOME. HOME HEALTH RECOMMENDED FOR PATIENT. REFERAL FAXED TO [facility] PER PATIENT AND FAMILY REQUEST. CALL PLACED TO JOSE ARMON [facility] INTAKE TO NOTIFY OF DISCHARGE TO HOME TODAY AND PATIENTS HH NEEDS. UNIT CM AWARE. AWAITING RESPONSE FROM [facility]. FOLLOWIING.
[2019-05-20 11:30] VITALS: BP 110/65
--- NOTE | 2019-05-20 12:19 | H ---
[facility] [place] [address] HISTORY AND PHYSICAL Name: RESENDIZJIMMY KRISS Room #: 514-P ADM IN M.R.#: [id number] Admission: 05/11/19 Attend Phys: Kriss Thorne MD Discharge: Date of : 33 Report #: [id number] THIS REPORT FOR: //name// CC: John Thorne DATE OF SERVICE: 05/11/2019 POSTADMISSION PHYSICIAN EVALUATION HISTORY OF PRESENT ILLNESS: The patient is an 83-year-old male who was admitted for acute inpatient rehabilitation. Please see the full admission note dictation. He is pleasant, alert, oriented today. He was on 2 liters nasal prong O2 premorbidly. Agree with the examination as per the history and physical dictation. He is hoping to become modified independent in the room. I discussed with him that I would have the therapist assess this. He is on higher level O2, then premorbid with his oxygen currently at 5 liters. He typically was on 2 liters. Again, I agree with the examination findings as noted in the history and physical and as per my examination today. From a postadmission physician evaluation perspective, there are no relevant changes since the preadmission screening. Please see the above review of prior and current medical and functional conditions and comorbidities. Please see the patient's previous and current functional status. As far as risk of complications, the patient has multiple medical comorbidities as noted above. Initial plan of care involves the interdisciplinary acute inpatient rehabilitation program with goal of maximizing his functional independence he can hopefully return back to his prior living situation. Measurable functional goals would be for the patient to become modified independent with transfers, mobility and ADLs so that he can hopefully return back to his prior living situation. Prognosis is reasonably good with estimated length of stay probably at least 7 days. Potential barriers would include his multiple medical comorbidities and decreased functional status. ADDENDUM: Discussion with Dr. Angelo, who was in this morning, who is following with his pancreatic CA, melanoma and lung cancers. He notes he was going to start him on some Diflucan for thrush. <ELECTRONICALLY SIGNED> By: Kriss Thorne MD 05/20/19 1219 0845 1043 rKiss Thorne MD /nt
--- NOTE | 2019-05-20 12:19 | PLAN ---
[facility] [place] [address] REHAB UNIT PLAN OF CARE Name: MARTÍNJIMMY KRISS Room #: 514-P ADM IN M.R.#: [id number] Admission: 05/11/19 Attend Phys: Kriss Thorne MD Discharge: Date of : 33 Report #: [id number] THIS REPORT FOR: //name// CC: John Thorne DATE OF SERVICE: 05/13/2019 SUBJECTIVE: The patient is an 83-year-old white male seen back today in followup. No new complaints. Temperature 36.6, pulse 47, respirations 18, blood pressure 138/68. His pulses have been running more in the 80s to upper 70s. He is being monitored in this regard. He has been working in therapies with transfers, independent. Working on gait training with an assistive device to try to improve his endurance. He had standby assistance for longer distances, standby assistance to work on stairs. In occupational therapy, he is min assist for lower body dressing, upper body dressing is supervision. He is needing 5 liters nasal cannula and has needed up to 6. Typically he was just on 2 liters at home prior. ASSESSMENT: 1. Acute on chronic respiratory failure secondary to pulmonary fibrosis. 2. Acute exacerbation of chronic obstructive pulmonary disease. 3. Pulmonary rehabilitation. 4. Severe protein calorie malnutrition. 5. Mediastinal and hilar lymphadenopathy. 6. History of pancreatic cancer. 7. History of lung cancer. 8. History of melanoma. 9. History of coronary artery disease. PLAN: The overall plan of care is based on the preadmission screen, post-admission physician evaluation and information garnered from therapy assessments. 1. Estimated length of stay is probably 7-10 days. 2. Medical prognosis is reasonably good. 3. Anticipated interventions includes the interdisciplinary acute inpatient rehabilitation stay. 4. Anticipated functional outcomes includes PT and OT with the goal of maximizing his independence with endurance. Hopefully, decreasing his O2 needs and being able to care for himself with mobility and ADLs, so he can return back to the home setting. 5. Discharge destination would be back home where he lives with his . 6. Expected therapy by discipline includes PT and OT 1-1/2 hours per day each [facility] [address] [place] [address] REHAB UNIT PLAN OF CARE Name: JIMMY RESENDIZ Room #: 514-P ADM IN .R.#: [id number] Admission: 05/11/19 Attend Phys: Kriss Thorne MD Discharge: Date of : 33 Report #: [id number] five days a week throughout the duration of the acute inpatient rehabilitation stay. <ELECTRONICALLY SIGNED> By: Kriss Thorne MD 05/20/19 1219 0918 2339 Kriss Thorne MD /nt
[2019-05-20 12:50] VITALS: BP 110/65
[2019-05-20 12:59] VITALS: BP 110/65
[2019-05-20 14:17] VITALS: BP 110/65
--- NOTE | 2019-05-20 19:29 | NUR ---
ASSUMED CARE OF PT AT 0715. PT IS A&OX4 AND VITAL SIGNS ARE STABLE. ORDERS RECEIVED FOR DISCHARGE HOME WITH HOME HEALTH. SCRIPTS OBTAINED BY PROVIDER FOR NEBULIZER AND MEDICAITONS. PT AT BEDSIDE. PT AND GIVEN DISCHARGE INSTRUCITONS, EDUCATION, PRESCRIPTION SCRIPTS, AND SIGNED DISCHARGE FORMS. DISCAHRGED FROM UNIT AT APPROXIMATELY 1400 WITH VOL[employer]TEER TRANSPORT IN W/C. THIS NURSE NOTIFIED AT APPROXIMATELY 1600 THAT NEW SCRIPT NEEDED TO BE FAXED TO COMPANY SUPPLYING NEBULIZER WITH NPI NUMBER FOR PROVIDER PRINTED. SCRIPT WAS FAXED WITH APPROPRIATE NUMBER AND THIS NURSE CALLED COMPANY TO CHECK ON STATUS, COMPANY PHONE STATED IT WAS AFTER HOURS. [facility] CALLED THIS NURSE AT APPROXIMATELY 1600 AND JANNETH STATED THAT THE ICD-10 CODE NEEDED TO BE ON SCRIPTS PRIOR TO BEING ABLE TO DISPENSE AND THAT THE CODE WAS REQUIRED TO BE ON THE SCRIPT AND THEN FAXED TO THAT PHARMACY BECAUSE A TELEPHONE ORDER COULD NOT BE TAKEN AND THAT SHE CAN NOT PRINT IT ON SCRIPT AT THE PHARMACY. THIS NURSE OBTAINED THE ICD-10 CODES AND FAXED THE SCRIPTS TO THE PHARMACY AND JANNETH FROM PHARMACY CALLED BACK STATING THAT THE SCRIPT WAS TOO DARK AND SHE COULD NOT READ THE SCRIPT WITH ICD-10 AND WOULD BE UNABLE TO FILL THE SCRIPT. NEW SCRIPT OBTAINED FROM PROVIDER WITH CODE PRINTED TO THE SCRIPT. PHARMACY CALLED AGAIN AND STATED THAT THE SCRIPTS WRITTEN WERE FOR AN AMOUNT TOO BIG FOR THE NEBULIZER, CALL WAS TAKEN BY ROXANA SIERRA AND THIS NURSE WAS TOLD BY RIGO THAT THE PHARMACY SAID THAT THEY WOULD FILL THE SCRIPT.
--- NOTE | 2019-05-21 12:56 | NUR ---
gaudencio visited with pt yamileth via phone call rt albuterol rx for btx [facility] [phone], "said it will be ready after 3 pm, had nicest visit with nurse from [facility] already and thank you for checking on btx meds for michelle"/yamileth. gaudencio called spoke with arsenio with tho stated " yes got the albuterol in and family can pick it up"/tho cesar.
--- NOTE | 2019-05-22 15:18 | HC ---
[facility] [place] [address] CONSULTATION Name: JIMMY RESENDIZ Room #: 514-P [facility] IN M.R.#: [id number] Admission: 05/11/19 Attend Phys: Rashaun Thorne MD Discharge: 05/20/19 Date of : 33 Report #: [id number] THIS REPORT FOR: //name// CC: John Dominguez Rashaun Thorne DATE OF SERVICE: 05/16/2019 NEUROBEHAVIORAL STATUS EXAM ATTENDING PHYSICIAN: Rashaun Thorne MD VAT SKIMMER: Alex Urbina, PhD CLINICAL PRESENTATION: The patient is an 83-year-old male admitted to the rehabilitation unit at [facility] for comprehensive inpatient rehabilitation program. He was initially admitted to the hospital with acute on chronic respiratory failure. His medical history includes lung cancer, pancreatic cancer and melanoma. His diagnoses on admission to the rehabilitation unit include acute on chronic respiratory failure secondary to pulmonary fibrosis, acute exacerbation of chronic obstructive pulmonary disease, pulmonary rehabilitation, severe protein-calorie malnutrition, mediastinal and hilar lymphadenopathy, history of pancreatic cancer, lung cancer, melanoma and coronary artery disease. Refer to medical records for complete description of his medical condition, history and medications. Neuropsychological consultation was requested to provide assistance in the assessment of cognitive and emotional status and to provide recommendations and services. The patient is a high school graduate. 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 He is but without children, has 1 brother and 4 sisters. There is no reported history of treatment for mood disorder or alcohol/drug abuse. TECHNIQUES UTILIZED: Clinical interview, review of medical records, staff consultation and behavioral observation, mini mental status exam 2 standard version, clock drawing and verbal fluency assessment (letter, category and brief abstract reasoning test.) EXAMINATION FINDINGS: The patient was alert and cooperative with the assessment. He accurately described the reason for his hospitalization. There is no evidence of aphasia. His thoughts are logical and goal oriented. There is no evidence of thought disorder. He does not report auditory or visual hallucinations. There is no suicidal ideation. The patient was hyperverbal and tangential throughout the interview. [facility] [address] [place] [address] CONSULTATION Name: JIMMY RESENDIZ Room #: 514-P [facility] IN M.R.#: [id number] Admission: 05/11/19 Attend Phys: Rashaun Thorne MD Discharge: 05/20/19 Date of : 33 Report #: [id number] He does not report problems with anxiety or depression. He states that his sleep and appetite are good. The patient does acknowledge some difficulty with word finding and memory. He is described as having been completely independent with activities of daily living and self-care prior to this most recent hospitalization. His performance on the MMSE 2 brief version was 14 of 16, which was within normal limits. Performance on the MMSE 2 standard version was 23 of 30, which is a T score of 36 and percentile rank of 8, which is in the borderline range. Clock drawing was inaccurate for number and hand placement. He left out a number plus placed the hand at incorrect time. Brief abstract reasoning test suggested impairment with a raw score of 3 of 8. Letter fluency was in the average range with a T score of 49 and percentile rank of 46. Category fluency was extremely low with a T score of 25 and percentile rank of 1. Overall, total fluency was a T score of 32 and percentile rank of 4, which is in the borderline range. The patient is presenting with deficits in category fluency and sustained concentration and attention. Subtle difficulty with immediate recall is noted. He is alert and oriented. Mood was pleasant and personable. 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 RECOMMENDATIONS: He would benefit from continued use of compensatory strategies for areas of decreased functioning. Speech therapy will be helpful in assisting with the development of compensatory techniques. A followup neuropsych assessment at about 6-8 weeks after discharge would help clarify neurocognitive functioning. At this time, assistance will be needed to compensate for attention/concentration and immediate recall. Thank you very much for allowing me to provide the consultation on this patient. <ELECTRONICALLY SIGNED> By: Alex Urbina, PhD 05/22/19 1518 2131 2336 Alex Urbina, PhD /nt
== END 2019-05-20 14:11 | disposition home health service (06) | DRG 189 ==
LOC: ENTRNSPT 05-20 13:54 → EDTRNSPTSTS 05-20 13:56
PROVIDERS: Internal Medicine Hematology & Oncology; Nurse Practitioner Family; ADMIT Physical Medicine & Rehabilitation
DX: J96.21 Acute and chronic respiratory failure with hypoxia (principal); E43 Unspecified severe protein-calorie malnutrition; J84.10 Pulmonary fibrosis, unspecified; I25.10 Atherosclerotic heart disease of native coronary artery without angina pectoris; G47.33 Obstructive sleep apnea (adult) (pediatric); B37.9 Candidiasis, unspecified; J43.9 Emphysema, unspecified; R53.81 Other malaise; D72.829 Elevated white blood cell count, unspecified; T38.0X5A Adverse effect of glucocorticoids and synthetic analogues, initial encounter; F01.50 Vascular dementia, unspecified severity, without behavioral disturbance, psychotic disturbance, mood disturbance, and anxiety; K21.9 Gastro-esophageal reflux disease without esophagitis; Z85.820 Personal history of malignant melanoma of skin; Z99.81 Dependence on supplemental oxygen; Z85.118 Personal history of other malignant neoplasm of bronchus and lung; Z85.07 Personal history of malignant neoplasm of pancreas; Z95.5 Presence of coronary angioplasty implant and graft; Z68.21 Body mass index [BMI] 21.0-21.9, adult; Z90.5 Acquired absence of kidney; Z90.81 Acquired absence of spleen; Z92.3 Personal history of irradiation; Z92.21 Personal history of antineoplastic chemotherapy; Y92.89 Other specified places as the place of occurrence of the external cause; Z90.2 Acquired absence of lung [part of]; Z79.899 Other long term (current) drug therapy; Z79.02 Long term (current) use of antithrombotics/antiplatelets
CPT/HCPCS: 10112

== ENCOUNTER 2019-05-22 15:35 | Emergency (ER) | payer OTHER, BC ==
[~2019-05-22] VITALS: Ht 185.4 cm; Wt 74.8 kg
[~2019-05-22 15:35] MED LIST changes: +COLACE100 MG PO; +FLOMAX0.4 MG PO; +LASIX 40 MG TAB40 M2 PO; +MIRALAX17 GM PO; +NEBULIZER MISCELL; +PREDNISONE 20 M20 MG PO; +TYLENOL325 MG PO
[2019-05-22 16:04] LABS: URINE BILIRUBIN NEGATIVE (Negative); URINE BLOOD NEGATIVE (Negative); URINE CLARITY CLEAR; URINE COLOR YELLOW; URINE GLUCOSE-RANDOM* NEGATIVE (Negative); URINE KETONES NEGATIVE (Negative); URINE LEUKOCYTES-REFLEX NEGATIVE (Negative); URINE NITRITE-REFLEX NEGATIVE (Negative); URINE PROTEIN (DIPSTICK) NEGATIVE (Negative)
[2019-05-22 17:05] LABS: ABSOLUTE NEUTROPHILS 14.5 thou/uL (1.4-8.2); BASOPHILS 0.4 % (0.0-2.0); HEMATOCRIT 40.5 % (42.0-52.0); HEMOGLOBIN 13.2 gm/dL (14.0-18.0); LYMPHOCYTES 2.8 % (24.0-44.0); MCH 32.3 pg (26.0-34.0); MCHC 32.6 g/dL (28.0-37.0); MCV 98.9 fL (80.0-100.0); MONOCYTES 1.9 % (1.0-8.0); PLATELET COUNT 206 thou/uL (150-400); POLYS 94.9 % (36.0-66.0); WBC 15.3 thou/uL (4.0-11.0)
[2019-05-22 17:12] LABS: ANION GAP 0 mmol/L (7-16); BUN 19 mg/dL (7-18); CALCIUM 8.4 mg/dL (8.5-10.1); CHLORIDE 94 mmol/L (98-107); CO2 39 mmol/L (21-32); CREATININE 1.1 mg/dL (0.7-1.3); GLUCOSE 290 mg/dL (74-106); POTASSIUM 4.3 mmol/L (3.5-5.1); SODIUM 133 mmol/L (136-145)
[2019-05-22 17:23] LABS: ALBUMIN 2.6 g/dL (3.4-5.0); LIPASE 40 U/L (73-393); SGOT 30 U/L (15-37); SGPT 45 U/L (30-65); TOTAL BILIRUBIN 0.7 mg/dL (<0.1-1.0); TOTAL PROTEIN 6.2 g/dL (6.4-8.2); TROPONIN-I <0.06 ng/mL (<0.06)
[2019-05-22 21:38] VITALS: BP 172/91
--- NOTE | 2019-05-23 11:43 | EKG ---
[place] [address] [place] [address] ELECTROCARDIOGRAM REPORT Name: JIMMY RESENDIZ Room #: DEP Antwon#: [id number] Admission: 05/22/19 Attend Phys: Discharge: 05/22/19 Date of : 33 Report #: [id number] THIS REPORT FOR: //name// [facility] ED Test Date: 2019-05-22 Test Time: 16:25:19 Pat Name: JIMMY RESENDIZ Department: Room: Gender: M Temp [facility]ruiter[facility] 1935 Requested By: Rasheed Butts Order Number: [id number] MD: Garrett Keith Measurements Intervals [place] Rate: 88 P: 45 UT: 132 QRS: 18 QRSD: 98 T: 58 QT: 369 QTc: 447 Interpretive Statements Sinus rhythm Probable left atrial enlargement Baseline wander in lead(s) V3 Compared to ECG 05/09/2019 12:20:56 Ventricular premature complex(es) no longer present Electronically Signed On 05-23-2019 11:43:10 CDT by Garrett Keith [email or web address] <ELECTRONICALLY SIGNED> By: Garrett Keith MD 05/23/19 1143 1625 1625 Garrett Keith MD /ALLAN
== END 2019-05-22 21:46 | disposition home or self-care (01) ==
LOC: ER 15:35
PROVIDERS: Emergency Medicine
DX: K55.1 Chronic vascular disorders of intestine (principal); I77.4 Celiac artery compression syndrome; I25.10 Atherosclerotic heart disease of native coronary artery without angina pectoris; E88.09 Other disorders of plasma-protein metabolism, not elsewhere classified; D72.829 Elevated white blood cell count, unspecified; J84.10 Pulmonary fibrosis, unspecified; E11.9 Type 2 diabetes mellitus without complications; J44.9 Chronic obstructive pulmonary disease, unspecified; Z85.07 Personal history of malignant neoplasm of pancreas; Z90.2 Acquired absence of lung [part of]; Z95.5 Presence of coronary angioplasty implant and graft; Z85.820 Personal history of malignant melanoma of skin

== ENCOUNTER 2019-06-21 10:33 | Inpatient (IN) | payer OTHER, BC ==
[~2019-06-21] VITALS: Ht 180.3 cm; Wt 59.0 kg
[2019-06-21 10:33] VITALS: BP 87/57
[2019-06-21] MEDS ORDERED: ANORO ELLIPTA1 EACH INH (10:47)
[2019-06-21 11:07] LABS: ABSOLUTE NEUTROPHILS 9.6 thou/uL (1.4-8.2); BASOPHILS 0.7 % (0.0-2.0); EOSINOPHILS 1.7 % (0.0-3.0); HEMATOCRIT 44.5 % (42.0-52.0); HEMOGLOBIN 14.4 gm/dL (14.0-18.0); LYMPHOCYTES 8.1 % (24.0-44.0); MCH 33.6 pg (26.0-34.0); MCHC 32.4 g/dL (28.0-37.0); MCV 103.4 fL (80.0-100.0); MONOCYTES 9.2 % (1.0-8.0); POLYS 80.3 % (36.0-66.0); RDW 15.4 % (10.5-14.5); WBC 11.9 thou/uL (4.0-11.0)
[2019-06-21 11:46] LABS: BE(vivo) 6.9 mmol/L (-2 to +3); HCO3 32.8 mmol/L (22.0-26.0); PCO2 52.2 mmHg (35.0-45.0); pH 7.416 (7.360-7.450); sO2 98.7 % (92.0-98.0)
[2019-06-21 11:54] LABS: PLATELET COUNT 283 thou/uL (150-400)
[2019-06-21 14:28] LABS: ANION GAP 4 mmol/L (7-16); BUN 14 mg/dL (7-18); CALCIUM 9.2 mg/dL (8.5-10.1); CHLORIDE 96 mmol/L (98-107); CO2 37 mmol/L (21-32); CREATININE 1.2 mg/dL (0.7-1.3); GLUCOSE 236 mg/dL (74-106); POTASSIUM 4.2 mmol/L (3.5-5.1); SODIUM 137 mmol/L (136-145)
[2019-06-21 14:36] LABS: ALBUMIN 3.4 g/dL (3.4-5.0); SGOT 21 U/L (15-37); SGPT 17 U/L (30-65); TOTAL BILIRUBIN 0.9 mg/dL (<0.1-1.0); TOTAL PROTEIN 7.1 g/dL (6.4-8.2); TROPONIN-I <0.06 ng/mL (<0.06)
[2019-06-21 16:32] LABS: PROTIME 10.2 Seconds (9.3-11.4)
[2019-06-21 18:25] VITALS: BP 119/72
[2019-06-21 20:07] VITALS: BP 114/67
[2019-06-22 03:31] LABS: HEMATOCRIT 39.1 % (42.0-52.0); HEMOGLOBIN 12.6 gm/dL (14.0-18.0); MCH 33.1 pg (26.0-34.0); MCHC 32.3 g/dL (28.0-37.0); MCV 102.4 fL (80.0-100.0); RBC 3.81 mil/uL (4.50-6.00); RDW 15.6 % (10.5-14.5); WBC 8.6 thou/uL (4.0-11.0)
[2019-06-22 03:33] LABS: CALCIUM 8.5 mg/dL (8.5-10.1); CREATININE 1.1 mg/dL (0.7-1.3); MAGNESIUM 1.8 mg/dL (1.8-2.4); POTASSIUM 3.8 mmol/L (3.5-5.1)
[2019-06-22 03:40] LABS: PLATELET COUNT 179 thou/uL (150-400)
[2019-06-22 04:26] VITALS: BP 145/78
--- NOTE | 2019-06-22 06:12 | NUR ---
PT IS KNOWN TO THE UNIT AND VERY NICE INDIVIDUAL. PT UP TO BATHROOM WITH X1 ASSIST AND WITH OXYGEN. PT GETS SOA ON EXERTION. FOLLOWING POC FOR PE WITH HEPARIN DRIP. PT CAME BACK AT 70, ACCORDING TO GUIDE, STAY THE COARSE WITH 15ML/HR. PT HAS NO COMPLAINTS. HOURLY ROUNDING.
[2019-06-22 06:32] LABS: ABSOLUTE NEUTROPHILS 6.3 thou/uL (1.4-8.2)
[2019-06-22 06:33] LABS: ANISOCYTOSIS 1+; MACROCYTES 1+; PLATELET ESTIMATE NORMAL; POIKILOCYTOSIS 1+
[2019-06-22 08:08] VITALS: BP 107/63
[2019-06-22 11:40] VITALS: BP 97/61
--- NOTE | 2019-06-22 14:01 | NUR ---
INITIAL ASSESSMENT: Pt evaluated for d/c planning needs. Reviewed chart. Pt lives in house with spouse and was hospitalized at [facility] last month and went to [facility]. Pt lives in house with spouse. Pt was d/c with [facility]. Pt has nebulizer, oxygen and CPAP (from [facility]). Pt plans on returning home on d/c from hospital. Will remain available to assist as needed.
[2019-06-22 15:35] VITALS: BP 102/60
--- NOTE | 2019-06-22 15:52 | NUR ---
MR RESENDIZ WAS ADMITTED PE. THIS MORNING HE FELT WEAK GETING UP TO THE BATHROOM AND SOB. HEPRIN DRIP CONTINUOUS FOR 28 HOURS PER ORDER, [id number] ML/HR. FIRST ASSESSMENT SHOWED DIMINSHED LUNG SOUNDS WITH WEEZIING, LAST ASSESSMENT I OBSERVED AN IMPROVEMENT WITH VASHTI AND LLL LUNG SOUNDS TO BE CLEAR HOWEVER RUL AND RLL WERE DIMINISHED. RT TREATMENTS TIB, PATIENTS COUGH PRODUCTION IMPROVED THROUGHOUT THE DAY. ASSISTED PT TO THE BATHROOM AT 1520, PT STATED HE LEFT SOME IMPORVEMENT IN MOBILITY AND LESS WEAKNESS. PT STILL ON 3L OF O2 CONTINUOUS.
--- NOTE | 2019-06-22 16:00 | NUR ---
I have reviewed the student's documentation.
--- NOTE | 2019-06-22 16:08 | NUR ---
pt's assessment has done, pt is A&OX3, PT is o2 o2 3L/MIN/NC , PT's vs are stable, pt has SOB with activities, pt is continuing Heparin drip ( for PE) at 15U/KG/HR as order, According to aptt 70, no heparin dose change since 2AM today, pt will have lab aptt 06/23/19 2am, pt does not have s/s of bleeding at this time, PT's family stay at pt's bedside .
--- NOTE | 2019-06-22 16:25 | NUR ---
RN has called dr coles's about pt's tagged WBC scan test has cancel.pt and family understand well,
[2019-06-22 19:42] VITALS: BP 111/66
[2019-06-23 03:42] VITALS: BP 130/73
--- NOTE | 2019-06-23 04:58 | NUR ---
/PATIENT IS PROGRESSING SLOWLY IN HIS CARE PLAN. VITAL SIGNS STABLE WITH PATIENT HAVING NO COMPLAINTS OF PAIN OR NAUSEA. PATIENT DID COMPLAIN OF HEARTBURN WHICH WAS SUCCESSFULLY TREATED THROUGH PRN MEDICATION. BREATHING STABLE ON THREE LITERS NASAL CANNULA EVIDENCED BY ASSESSMENT AND SPOT OXYGENATION CHECKS. PATIENT IS SOA WITH ACTIVITY BUT RECOVERS QUICKLY. HEPARIN GTT THERAPUTIC WITH RE DRAW SCHEDULED FOR 06/24 @ 0200. PATIENT HAS BEEN UP MULTIPLE TIMES TO BATHROOM WITH ASSISTANCE INCIDENT FREE. CONTINUE PLAN OF CARE.
--- NOTE | 2019-06-23 07:48 | EKG ---
[address] [address] ELECTROCARDIOGRAM REPORT Name: JIMMY RESENDIZ Room #: 362-P ADM IN M.R.#: [id number] Admission: 06/21/19 Attend Phys: Ted Hopkins MD Discharge: Date of : 31 Report #: [id number] THIS REPORT FOR: //name// [facility] ED Test Date: 2019-06-21 Test Time: 11:04:22 Pat Name: JIMMY RESENDIZ Department: Room: 362 Gender: M Employment Specialist/Program Manager: laura : 1935 Requested By: Fransico Mitchell Order Number: [id number] MD: Garrett Keith Measurements Intervals [place] Rate: 72 P: 56 MT: 135 QRS: 40 QRSD: 93 T: 39 QT: 391 QTc: 428 Interpretive Statements Sinus rhythm Atrial premature complexes Probable right atrial enlargement Compared to ECG 05/22/2019 16:25:19 Atrial premature complex(es) now present Electronically Signed On 06-23-2019 7:48:41 CDT by Garrett Keith [email or web address] <ELECTRONICALLY SIGNED> By: Garrett Keith MD 06/23/19 0748 03 Garrett Keith MD /ALLAN
[2019-06-23 08:00] VITALS: BP 116/66
[2019-06-23 11:44] VITALS: BP 116/70
--- NOTE | 2019-06-23 14:38 | NUR ---
SW reviewed chart and spoke with nursing and attending physician. Pt is progressing towards goals for discharge. Plan is for pt to discharge home when medically stable. SW is following to assist as needed with discharge planning.
[2019-06-23 16:52] VITALS: BP 98/66
[2019-06-23 20:20] VITALS: BP 118/57
[2019-06-24 02:25] LABS: HEMATOCRIT 35.5 % (42.0-52.0); HEMOGLOBIN 11.4 gm/dL (14.0-18.0); MCHC 32.2 g/dL (28.0-37.0); MCV 102.8 fL (80.0-100.0); RBC 3.46 mil/uL (4.50-6.00); RDW 15.4 % (10.5-14.5); WBC 8.8 thou/uL (4.0-11.0)
[2019-06-24 02:30] LABS: CALCIUM 8.3 mg/dL (8.5-10.1); CREATININE 0.9 mg/dL (0.7-1.3); POTASSIUM 3.5 mmol/L (3.5-5.1)
[2019-06-24 03:02] LABS: FOLIC ACID 18.7 ng/mL (8.6-58.9)
[2019-06-24 03:48] VITALS: BP 109/54
--- NOTE | 2019-06-24 05:39 | NUR ---
Pt. stated he slept fair during the night. Bed alarm on for safety. He appropriately calls for assistance. O2 at 2L/NC , no respiratory distress. Up with assist x1 to bathroom using walker. Cont. on heparin gtt. with no active bleeding.Voided per bathroom and at times uses urinal. Making progress towards care plan goals.
[2019-06-24 07:33] VITALS: BP 100/54
[2019-06-24 11:23] VITALS: BP 113/78
--- NOTE | 2019-06-24 13:06 | NUR ---
DISCHARGE PLANNING. ANTICIPATED DISCHARGE TOMORROW. HOME HEALTH REOMMENDED AT DISCHARGE. REFERRAL FAXED TO [facility] PER REQUEST. CALL PLACED TO JOSE RAMON. VERIFIED REFERRAL RECEIVED AND IS ACCEPTING OF PATIENT AT DISCHARGE. JOSE RAMON TO FACILITATE PATIENTS HH NEEDS ONCE DISCHARGE ORDERS RECEIVED. UNIT SW AWARE. FOLLOWING.
--- NOTE | 2019-06-24 13:24 | NUR ---
SW reviewed chart and spoke with nursing and attending physician. Pt is progressing towards goals for discharge. Pt is on heparin gtt and will transition to Eliquis. Discharge home with HH is anticipated for tomorrow. SW met with pt and at bedside. Discussed discharge plan. Pt has used [facility] in the past and they would like to use them again. Pt's requests same clinical team as last time (RN-Yue, OT-Ernestina, HOTEL SERVICES SALES REPRESENTATIVE-Yani and PT-Will). This information provided to [facility] liaison. demand planner faxed referral info to [facility]. HH liaison to meet with pt and at bedside this afternoon. SW provided pt/ with Eliquis info and discount cards. SW is following to assist as needed with discharge planning.
[2019-06-24 15:23] VITALS: BP 126/66
--- NOTE | 2019-06-24 18:29 | NUR ---
PATIENT OFF HEPARIN DRIP THIS AM. STARTED ON ANOTHER BLOOD THINNER. HE STATES HE FEELS MUCH BETTER. DENIES RESPIRATORY DISTRESS AT THIS TIME. WILL CONT WITH PLAN OF CARE.
[2019-06-24 19:35] VITALS: BP 112/56
[2019-06-25 04:38] VITALS: BP 99/45
[2019-06-25 05:44] LABS: HEMATOCRIT 37.7 % (42.0-52.0); HEMOGLOBIN 12.2 gm/dL (14.0-18.0); MCHC 32.3 g/dL (28.0-37.0); MCV 102.3 fL (80.0-100.0); RBC 3.68 mil/uL (4.50-6.00); RDW 15.3 % (10.5-14.5); WBC 8.7 thou/uL (4.0-11.0)
[2019-06-25 05:49] LABS: CALCIUM 8.5 mg/dL (8.5-10.1); POTASSIUM 3.9 mmol/L (3.5-5.1)
--- NOTE | 2019-06-25 07:37 | NUR ---
PATIENT IS PROGRESSING IN HIS CARE PLAN. VITAL SIGNS STABLE WITH PATIENT HAVING NO COMPLAINTS OF PAIN OR NAUSEA. PATIEWNT DID COMPLAIN OF ACID REFLUX WHICH WASD TREATED EFFECTIVELY BY NURSE THROUGH MEDICATIONS. FULLY ORIENTED, PATIENT IS ABLE TO PARTICIPATE IN CARE AND CALL APPROPRIATELY FOR NEEDS. BREATHING STABLE ON OXYGEN EVIDENCED BY ASSESSMENT AND SPOT OXYGENATION CHECKS. PATIENT UP MULTIPLE TIMES TO RESTROOM WITH ASSISTANCE INCIDENT FREE. PATIENT IS ANXIOUS FOR POTENTIAL DISCHARGE TODAY. CONTINUE PLAN OF CARE.
[2019-06-25 08:11] VITALS: BP 122/49
[2019-06-25] MEDS ORDERED: ELIQUIS5 M1 PO (10:14)
[2019-06-25 10:28] VITALS: BP 122/49
--- NOTE | 2019-06-25 11:41 | NUR ---
DISCHARGE NOTE: SW reviewed chart and spoke with nursing and attending physician. Pt is medically stable for discharge home today with HH services and Eliquis. SW met with pt and at bedside to discuss discharge plan. Script for Eliquis taken to [facility] outpatient pharmacy this morning to be filled prior to pt's discharge. Pt and are agreeable with discharge plan. [facility] to start HH over the weekend. Pt has a f/u appt with pulm next Friday. Pt has home O2 in place at home. Contact info for [facility] placed in pt's discharge. merchandise planner to fax final discharge orders/summary when available. Pt's family to provide transportation home. No additional SW needs identified at this time, but is available to assist should needs arise.
[2019-06-25 14:39] VITALS: BP 122/49
--- NOTE | 2019-06-25 17:27 | NUR ---
PATIENT DISCHARGED HOME WITH . RESIDENT HAD PORTABLE OXYGEN TANK THAT HE USED DURING TRANSPORT. HE AMBULATES WITH A SLOW BUT STEADY GAIT.
== END 2019-06-25 15:19 | disposition home health service (06) | DRG 175 ==
LOC: ER 10:33 → 3W 16:13 → EROBS 16:13 → 3W 17:50
PROVIDERS: Hospitalist; Nurse Practitioner; Nurse Practitioner Family; Physician Assistant; ADMIT Internal Medicine
DX: I26.99 Other pulmonary embolism without acute cor pulmonale (principal); J96.21 Acute and chronic respiratory failure with hypoxia; E43 Unspecified severe protein-calorie malnutrition; J96.22 Acute and chronic respiratory failure with hypercapnia; J84.9 Interstitial pulmonary disease, unspecified; Z68.1 Body mass index [BMI] 19.9 or less, adult; J44.9 Chronic obstructive pulmonary disease, unspecified; I25.10 Atherosclerotic heart disease of native coronary artery without angina pectoris; J84.10 Pulmonary fibrosis, unspecified; K21.9 Gastro-esophageal reflux disease without esophagitis; D53.9 Nutritional anemia, unspecified; Z85.07 Personal history of malignant neoplasm of pancreas; Z95.5 Presence of coronary angioplasty implant and graft; Z85.118 Personal history of other malignant neoplasm of bronchus and lung
CPT/HCPCS: 10879

== ENCOUNTER 2019-08-22 15:26 | Inpatient (IN) | payer OTHER, BC ==
[~2019-08-22] VITALS: Ht 180.3 cm; Wt 61.7 kg
[~2019-08-22 15:26] MED LIST changes: +ANORO ELLIPTA1 EACH INH; +ELIQUIS5 M1 PO
[2019-08-22 15:32] VITALS: BP 95/46
[2019-08-22 15:59] LABS: HEMOGLOBIN 11.3 gm/dL (14.0-18.0); MCH 32.8 pg (26.0-34.0); MCHC 32.4 g/dL (28.0-37.0); MCV 101.3 fL (80.0-100.0); PLATELET COUNT 219 thou/uL (150-400); RBC 3.46 mil/uL (4.50-6.00); RDW 13.8 % (10.5-14.5); WBC 8.2 thou/uL (4.0-11.0)
[2019-08-22] MEDS ORDERED: ESBRIET267 M1 PO (16:10)
[2019-08-22 16:11] LABS: ANION GAP 2 mmol/L (7-16); BUN 17 mg/dL (7-18); CALCIUM 8.9 mg/dL (8.5-10.1); CHLORIDE 98 mmol/L (98-107); CO2 36 mmol/L (21-32); GLUCOSE 111 mg/dL (74-106); POTASSIUM 3.8 mmol/L (3.5-5.1); SODIUM 136 mmol/L (136-145)
[2019-08-22 16:21] LABS: ALBUMIN 2.8 g/dL (3.4-5.0); SGOT 18 U/L (15-37); SGPT 8 U/L (30-65); TOTAL BILIRUBIN 0.2 mg/dL (<0.1-1.0); TOTAL PROTEIN 6.3 g/dL (6.4-8.2); TROPONIN-I <0.06 ng/mL (<0.06)
[2019-08-22 17:15] LABS: ABSOLUTE NEUTROPHILS 5.6 thou/uL (1.4-8.2)
[2019-08-22 17:22] VITALS: BP 147/68
[2019-08-22 17:36] LABS: BE(vivo) 7.6 mmol/L (-2 to +3); HCO3 34.8 mmol/L (22.0-26.0); PCO2 61.7 mmHg (35.0-45.0); pH 7.369 (7.360-7.450); sO2 97.9 % (92.0-98.0)
[2019-08-22 17:54] VITALS: BP 147/68
--- NOTE | 2019-08-22 18:40 | NUR ---
PATIENT ADMITTED TO ROOM AT THIS TIME. HE IS ALERT ORIENTED X4. HERE BECAUSE OF INCREASING SHORTNESS OF BREATH. HE DENIES PAIN. STATES HE IS OK SO FAR HE IS NOT EXERTING HIMSELF EVIDENCE BY REG. RESPIRATIONS. SKIN CLEAR. NO OPEN AREAS. LUNG SOUNDS DIMINISHED. WILL CONT WITH PLAN OF CARE.
[2019-08-22 19:33] VITALS: BP 131/62
[2019-08-23 00:10] VITALS: BP 119/58
--- NOTE | 2019-08-23 02:10 | NUR ---
Patient advised he felt short of air after walking to and from the bathroom. RN titrated O2 from 2L to 3L. Patient advised this helped him feel less short of air. Patient's O2 Saturations remained stable amd in the 90s. Nursing will continue to monitor.
[2019-08-23 04:45] VITALS: BP 143/72
[2019-08-23 07:50] VITALS: BP 145/73
--- NOTE | 2019-08-23 08:04 | EKG ---
[address] [place] [address] ELECTROCARDIOGRAM REPORT Name: JIMMY RESENDIZ Room #: 353-P ADM IN M.R.#: [id number] Admission: 08/22/19 Attend Phys: Eliana Skinner Discharge: Date of : 31 Report #: [id number] THIS REPORT FOR: //name// [facility] ED Test Date: 2019-08-22 Test Time: 15:39:50 Pat Name: JIMMY RESENDIZ Department: Room: 353 Gender: M Retail Shift Supervisor: AFUA : 1935 Requested By: Merle Carter Order Number: [id number] MD: Fortino Rodriguez Measurements Intervals [place] Rate: 77 P: 68 UT: 48 QRS: 35 QRSD: 106 T: 56 QT: 384 QTc: 435 Interpretive Statements Sinus rhythm RSR' in V1 or V2, right VCD Compared to ECG 06/21/2019 11:04:22 atrial premature complexes are no longer present Electronically Signed On 08-23-2019 8:04:08 CANDY FEEDER by Fortino Rodriguez [email or web address] <ELECTRONICALLY SIGNED> By: Fortino Rodriguez MD, [facility] 08/23/19 0804 1539 38 Fortino Rodriguez MD, [facility] /EPI
--- NOTE | 2019-08-23 09:48 | NUR ---
ASSESSMENT: CM REVIEWED CHART AND MET WITH PATIENT AT THE BEDSIDE. PT WAS ADMITTED WITH COPD EXACERBATION. PT REPORTS HE LIVES AT HOME WITH HIS . PT REPORTS HAVING ONE STEP TO ENTER THEIR HOME AND NO STEPS HE HAS TO USE ONCE INSIDE. PT REPORTS HE AMBULATES USING A 4 WHEEL WALKER. PT REPORTS HE HAS HOME OXYGEN (BASELINE IS 2-3 L), A NEBULIZER, AND CPAP THROUGH [employer]. PT REPORTS THAT HE HAD [facility] IN THE PAST AND IS CURRENTLY GOING TO PULMONARY REHAB HERE AT [facility]. PT REPORTS HE IS HOPEFUL TO RETURN TO OUTPATIENT PULMONARY REHAB AT DISCHARGE. PT REPORTS HE HAS NOT BEEN TO A SNF. CM WILL CONTINUE TO FOLLOW TO ASSIST NEEDED.
[2019-08-23 11:41] VITALS: BP 140/72
[2019-08-23 16:25] VITALS: BP 141/71
--- NOTE | 2019-08-23 18:00 | NUR ---
PT VERY ANXIOUS REGARDING HIS SHORTNESS OF AIR...ON 3L AND STARTED RT TX...REPORTS USED TO WEAR CPAP AT HOME BUT HASN'T BEEN ABLE TO TOLERATE SINCE ABOUT FEBRUARY SO WEARS O2 CONTINOUSLY...
[2019-08-23 19:32] VITALS: BP 136/74
[2019-08-24 03:51] VITALS: BP 143/77
--- NOTE | 2019-08-24 04:15 | NUR ---
PT WAS A TRANFSER FROM [facility]. PT IS ALERT AND ORIENTED X 4. PT IS ON 3L NASAL CANULA. PT IS UP AD GIORGIO AND AWARE OF HIS LIMITATIONS. PT STATES THAT HE WANTS TO GET SOME REST AND GET OUT OF THE HOSPITAL. PT IS RESTING IN HIS ROOM. WILL CONTINUE TO MONITOR.
[2019-08-24 06:21] LABS: CREATININE 0.9 mg/dL (0.7-1.3); POTASSIUM 4.7 mmol/L (3.5-5.1)
[2019-08-24 07:57] VITALS: BP 144/78
--- NOTE | 2019-08-24 08:18 | NUR ---
PATIENT STABLE. 3LNC. MEDICATION GIVEN. TRANSFERED TO AT 0000.
--- NOTE | 2019-08-24 16:08 | NUR ---
S/W IN [facility] AND SHE SAYS PT PLANS TO RETURN HOME AND CONTINUE WITH PULMONARY REHAB AT [place]. FOLLOWING.
[2019-08-24 16:12] VITALS: BP 138/70
--- NOTE | 2019-08-24 16:41 | NUR ---
PT A&OX4. IV INTACT IN L FA. AMBULATES SELF IN ROOM. O2@3L PER NC. DENIES PAIN, SPOUSE AT BEDSIDE. WILL CONT POC.
[2019-08-24 20:50] VITALS: BP 146/75
[2019-08-25 03:30] VITALS: BP 145/75
--- NOTE | 2019-08-25 04:02 | NUR ---
Assumed pt care @ 1900. A/OX4,VSS. Denies pain on assessment. Up ad deandra without problems. Voiding without problems. Resting quietly with no distress noted,oxygen in place at 3 L/NC. Envouraged to call for help as needed.
[2019-08-25 08:55] VITALS: BP 137/69
[2019-08-25 17:48] VITALS: BP 138/67
--- NOTE | 2019-08-25 19:21 | NUR ---
PT A7OX4. IV INTACT IN L FA.O2@3 LPER NC. UP AD GIORGIO IN ROOM. SPOUSE SPENDS THE DAY WITH HER SPOUSE. PT HAD DIFFICULTY WITH EXSPECTORING FLEM. PLANS ARE FOR POSS. DC TOMORRO.
[2019-08-25 19:23] VITALS: BP 137/72
--- NOTE | 2019-08-26 01:07 | NUR ---
ASSUMED CARE OF PATIENT AT APPROX. 2144. ASSESSMENT CHARTED. MEDICATIONS GIVEN PER NOV. PATIENT IS A&OX4,VSS, DENIES PAIN. O2 SATS WNL ON 3L. PATIENT GETS UP INDEPENDENTLY WITH NO ISSUES. PATIENT HAS BEEN VOIDING WELL. PATIENT IS YET TO HAVE A BM SINCE 08/23 BUT DOES NOT FEEL PAIN AND IS NOT DISTENDED. PER NOTE, PATIENT IS A POSSIBLE D/C IN AM ONE MEDICALLY STABLE. PATIENTS VOICES NO OTHER CONCERNS AT THIS TIME. FAMILY AT BEDSIDE. WILL CONTINUE TO MONITOR AND FOLLOW POC
[2019-08-26 04:31] VITALS: BP 128/60
[2019-08-26 07:36] VITALS: BP 127/70
[2019-08-26] MEDS ORDERED: ADULT TUSS100 MG/5 M PO (10:00)
[2019-08-26] MEDS ORDERED: PREDNISONE 20 M20 M1 PO (10:02)
[2019-08-26] MEDS ORDERED: DOXYCYCLINE 10100 M2 PO (10:04)
[2019-08-26 10:33] VITALS: BP 127/70
--- NOTE | 2019-08-26 16:27 | NUR ---
DC ORDERS RECEIVED. IV REMOVED FROM L FA. DC INSTRUCTIONS, SCRIPTS AND F/U APPOINTMENT REVIEWED WITH PT. PT ESCORTED TO MAIN LOBBY BY THERMAL MOLDER.
== END 2019-08-26 13:30 | disposition home or self-care (01) | DRG 189 ==
LOC: ER 15:26 → 3W 17:12 → EROBS 17:12 → 3W 17:54 → 4S 08-24 00:48
PROVIDERS: Internal Medicine Pulmonary Disease; Nurse Practitioner Family; ADMIT Hospitalist
DX: J96.21 Acute and chronic respiratory failure with hypoxia (principal); E43 Unspecified severe protein-calorie malnutrition; J44.0 Chronic obstructive pulmonary disease with (acute) lower respiratory infection; Z68.1 Body mass index [BMI] 19.9 or less, adult; J20.9 Acute bronchitis, unspecified; J96.22 Acute and chronic respiratory failure with hypercapnia; I25.10 Atherosclerotic heart disease of native coronary artery without angina pectoris; E53.8 Deficiency of other specified B group vitamins; J84.112 Idiopathic pulmonary fibrosis; R00.0 Tachycardia, unspecified; Z85.07 Personal history of malignant neoplasm of pancreas; Z95.5 Presence of coronary angioplasty implant and graft; Z85.118 Personal history of other malignant neoplasm of bronchus and lung; Z86.711 Personal history of pulmonary embolism; Z79.899 Other long term (current) drug therapy; Z99.81 Dependence on supplemental oxygen; Z79.01 Long term (current) use of anticoagulants; Z85.820 Personal history of malignant melanoma of skin; Z87.891 Personal history of nicotine dependence
CPT/HCPCS: 10080; 10102; 10879

== ENCOUNTER 2019-09-27 10:32 | Inpatient (IN) | payer OTHER, BC ==
[~2019-09-27] VITALS: Ht 180.3 cm; Wt 67.0 kg
[~2019-09-27 10:32] MED LIST changes: +ADULT TUSS100 MG/5 M PO; +DOXYCYCLINE 10100 M2 PO; +ESBRIET267 M1 PO; +PREDNISONE 20 M20 M1 PO
[2019-09-27 10:33] VITALS: BP 95/48
[2019-09-27 11:06] LABS: HEMATOCRIT 35.1 % (42.0-52.0); HEMOGLOBIN 11.2 gm/dL (14.0-18.0); MCH 32.6 pg (26.0-34.0); MCHC 31.7 g/dL (28.0-37.0); MCV 102.7 fL (80.0-100.0); PLATELET COUNT 231 thou/uL (150-400); RBC 3.42 mil/uL (4.50-6.00); RDW 14.5 % (10.5-14.5); WBC 11.7 thou/uL (4.0-11.0)
[2019-09-27 11:15] LABS: ANION GAP 3 mmol/L (7-16); BUN 20 mg/dL (7-18); CALCIUM 9.1 mg/dL (8.5-10.1); CHLORIDE 96 mmol/L (98-107); CO2 38 mmol/L (21-32); CREATININE 1.1 mg/dL (0.7-1.3); GLUCOSE 97 mg/dL (74-106); POTASSIUM 3.9 mmol/L (3.5-5.1); SODIUM 137 mmol/L (136-145)
[2019-09-27 11:29] LABS: ALBUMIN 2.4 g/dL (3.4-5.0); SGOT 18 U/L (15-37); SGPT 17 U/L (30-65); TOTAL BILIRUBIN 0.8 mg/dL (<0.1-1.0); TROPONIN-I <0.06 ng/mL (<0.06)
[2019-09-27 12:03] LABS: BE(vivo) 11.4 mmol/L (-2 to +3); HCO3 37.9 mmol/L (22.0-26.0); PCO2 60.2 mmHg (35.0-45.0); PO2 110.1 mmHg (80.0-100.0); pH 7.417 (7.360-7.450)
[2019-09-27 12:56] LABS: ANISOCYTOSIS 1+; MACROCYTES 1+
[2019-09-27 13:06] VITALS: BP 121/54
[2019-09-27] MEDS ORDERED: ESBRIET267 M1 PO (14:28)
[2019-09-27 23:52] VITALS: BP 114/62
--- NOTE | 2019-09-28 02:48 | NUR ---
Admission history and assessments completed. Careplan initiated.
[2019-09-28 04:47] VITALS: BP 136/81
[2019-09-28 07:32] VITALS: BP 144/75
--- NOTE | 2019-09-28 09:58 | EKG ---
[address] [place] [address] ELECTROCARDIOGRAM REPORT Name: RESENDIZJIMMYLAURIE MONTERROSO Room #: 363-P ADM IN M.R.#: [id number] Admission: 09/27/19 Attend Phys: Eliana Skinner Discharge: Date of : 31 Report #: [id number] THIS REPORT FOR: //name// [facility] ED Test Date: 2019-09-27 Test Time: 10:40:53 Pat Name: JIMMY RESENDIZ Department: Room: 363 Gender: M Portable Machine Cutter: AFUA : 1935 Requested By: Merle Carter Order Number: [id number] MD: Fortino Rodriguez Measurements Intervals [place] Rate: 92 P: 49 CT: 129 QRS: 43 QRSD: 90 T: 57 QT: 338 QTc: 419 Interpretive Statements Sinus rhythm Atrial premature complexes Borderline T wave abnormalities Compared to ECG 08/22/2019 15:39:50 Atrial premature complex(es) now present Electronically Signed On 09-28-2019 9:57:22 INTEGRATIVE MEDICINE PHYSICIAN by Fortino Rodriguez [email or web address] <ELECTRONICALLY SIGNED> By: Fortino Rodriguez MD, [facility] 09/28/19 0957 1040 1040 Fortino Rodriguez MD, [facility] /EPI
[2019-09-28 11:17] VITALS: BP 107/56
--- NOTE | 2019-09-28 14:46 | NUR ---
INITIAL ASSESSMENT: Received consult. SW reviewed chart and spoke with nursing and attending physician. Pt was admitted from home due to acute on chronic respiratory failure. Pt with hx of pulmonary fibrosis/interstitial lung disease. Pt known to SW from previous hospitalizations. SW met with pt and at bedside. Introduced role of SW. Pt is alert/orientated x 4. Pt and live at home. Pt has a walker and home O2 in place through [facility]. Pt has been to [facility] and used [facility] in the past. Pt's PCP is Dr. John Dominguez. Pt's trucksmith is Dr. Gautam. Pt is currently doing outpatient pulmonary rehab at [facility] 2x/week. SW is following to assist as needed with discharge planning.
[2019-09-28 15:50] VITALS: BP 99/58
[2019-09-28 19:23] VITALS: BP 101/47
--- NOTE | 2019-09-28 19:46 | NUR ---
pt is A&OX3, PT is continuing IV abx and breathing treatment, pt's vs and o2sat are stable, pt denies pain and sob.
[2019-09-29 01:58] LABS: HEMATOCRIT 29.9 % (42.0-52.0); HEMOGLOBIN 9.6 gm/dL (14.0-18.0); MCH 32.7 pg (26.0-34.0); MCHC 32.1 g/dL (28.0-37.0); MCV 101.8 fL (80.0-100.0); PLATELET COUNT 210 thou/uL (150-400); RBC 2.93 mil/uL (4.50-6.00); RDW 14.5 % (10.5-14.5); WBC 12.5 thou/uL (4.0-11.0)
[2019-09-29 02:06] LABS: CALCIUM 8.5 mg/dL (8.5-10.1); CREATININE 1.1 mg/dL (0.7-1.3); POTASSIUM 4.3 mmol/L (3.5-5.1)
[2019-09-29 02:23] LABS: ABSOLUTE NEUTROPHILS 9.9 thou/uL (1.4-8.2)
--- NOTE | 2019-09-29 03:25 | NUR ---
Patient making slow progress towards outcome goals. Oxygenation optimal with 3L oxygen per NC, baseline for patient. Vital signs and rhythm stable. Uses call light appropriately for needs.
[2019-09-29 05:40] VITALS: BP 102/51
[2019-09-29 07:47] VITALS: BP 108/65
[2019-09-29 15:30] VITALS: BP 120/65
--- NOTE | 2019-09-29 19:27 | NUR ---
PATIENT CONT TO IMPROVE. UP AD GIORGIO IN ROOM AND HAD A SHOWER TODAY. HE DOES NOT SEEM TO BE IN PAIN RESPIRATIONS ARE NON LABORED. WILL CONT WITH PLAN OF CARE.
[2019-09-29 20:20] VITALS: BP 104/58
[2019-09-30 04:45] VITALS: BP 111/54
--- NOTE | 2019-09-30 05:42 | NUR ---
PATIENT IS ADVANCING SLOWLY IN HIS CARE PLAN. VITAL SIGNS STABLE WITH PATIENT HAVING NO COMPLAINTS OF PAIN OR NAUSEA. FULLY ORIENTED, PATIENT IS ABLE TO CALL APPROPRIATELY FOR NEEDS. BREATHING STABLE EVIDENCED BY ASSESSMENT AND SPOT OXYGENATION CHECKS. UP AD GIORGIO THROUGHOUT SHIFT, PATIENT IS BALANCED AND COORDINATED WHEN WALKING. CONTINUE PLAN OF CARE.
[2019-09-30 07:40] VITALS: BP 141/68
[2019-09-30 11:25] VITALS: BP 99/70
--- NOTE | 2019-09-30 13:07 | NUR ---
KILO reviewed chart and spoke with nursing and attending physician. Consult for [facility] ordered today to evaluate pt for possible admission to inpt acute rehab. SW discussed with [facility] re[facility] office coordinator. Pt remains on IV abx and IV steroids. KILO is following to assist as needed with discharge planning.
--- NOTE | 2019-09-30 16:12 | NUR ---
Assumed care approx. 0700 this AM. No acute changes noted this shift. Patient recieving IV abx and steroids per orders. Family and friends at bedside. Patient given IV zofran once after lunch for complaints of nausea which have since then resolved. Pt up ad deandra and still tolerating well but SOB with exertion. Will continue to monitor. Patient progressing toward plan of care goals at this time.
[2019-09-30 19:50] VITALS: BP 109/59
[2019-10-01 03:56] VITALS: BP 146/85
--- NOTE | 2019-10-01 04:47 | NUR ---
PATIENT IS PROGRESSING IN HIS CARE PLAN. VITAL SIGNS STABLE WITH PATIENT HAVING NO COMPLAINTS OF PAIN OR NAUSEA. FULLY ORIENTED, PATIENT IS ABLE TO CALL APPROPRIATELY FOR NEEDS AND PARTICIPATE FULLY IN CARE PLAN. BREATHING STABLE EVIDENCED BY ASSESSMENT AND SPOT OXYGENATION CHECKS. UP MULTIPLE TIMES TO THE BATHROOM INCIDENT FREE. PATIENT IS ANXIOUS FOR POTENTIAL DISCHARGE TO REHAB SOON. CONTINUE PLAN OF CARE.
[2019-10-01 07:34] VITALS: BP 152/84
--- NOTE | 2019-10-01 14:59 | NUR ---
Received consult for hospice at home. KILO discussed case with [facility] re[facility] assistant, who states that pt does not have a new dx to qualify for inpt acute rehab. KILO met with pt's to discuss hospice referral. Options provided. Pt has used [facility] in the past and would like to meet with their hospice. Plan is for pt to go home with hospice at this time. Pt's states that she is aware that there are hospice facilities if needed in the future. Pt's asked about a hospice program with a specialized pulmonary program. KILO discussed with personal investment adviser's LIVESTOCK YARD SUPERVISOR. Shraddha was mentioned. KILO spoke with [place] application development liaison. Their cardiopulmonary program is for their HH pts. KILO faxed referral to [facility] for review. [facility] will contact pt's to arrange an info visit. KILO attempted to meet with pt and at bedside to provide udpate. Pt had several visitors in his room. KILO will follow up with pt and at a later time. KILO is following to assist as needed with discharge planning.
[2019-10-01 15:11] VITALS: BP 106/55
[2019-10-01 19:25] VITALS: BP 127/64
[2019-10-02 04:10] VITALS: BP 148/56
--- NOTE | 2019-10-02 07:06 | NUR ---
ASSUMED CARE OF PT AT 1900. A&Ox4, COOPERATIVE. VS STABLE. C/O STILL FEELING SOA DESPITE ADEQUATE O2 SAT'S. C/O CHEST PAIN FROM COUGHING, TYLENOL GIVEN W/ FULL RELIEF. ASSMTS DOCUMENTED. NO ACUTE DISTRESS. PROGRESSING TOWARDS POC GOALS.
[2019-10-02 07:38] VITALS: BP 154/78
[2019-10-02 15:20] VITALS: BP 133/61
--- NOTE | 2019-10-02 17:16 | NUR ---
ASSUMED CARE OF PT AT 0700. PT ALERT AND ORIENTED X4 IN NO ACUTE DISTRESS. UP AD GIORGIO W/ STEADY GAIT. VITALS STABLE. REFUSING INSULIN TREATMENT UNLESS SUGAR > 200. VOICING NO CONCERNS AT THIS TIME. IV ABX INFUSING PER ORDER. PT PROGRESSING TOWARD POC GOALS.
[2019-10-02 19:08] VITALS: BP 135/63
--- NOTE | 2019-10-02 22:48 | NUR ---
Patient's 2030 blood glucose was 65. Patient drank apple juice per orders and his blood glucose negrito to 101 at 2130. Nursing will continue to monitor.
--- NOTE | 2019-10-03 05:18 | NUR ---
0445--PT ARRIVED ON UNIT FROM [facility] A TRANSFER TO ROOM 437.
[2019-10-03 05:57] VITALS: BP 132/58
--- NOTE | 2019-10-03 06:46 | NUR ---
Report was given to nurse, patient was disconnected from tele and he and his personal belongings were transported to at approximately 0445.
[2019-10-03 08:24] VITALS: BP 128/51
--- NOTE | 2019-10-03 09:52 | NUR ---
PT RESTING IN BED WATCHING TV AND EATING BREAKFAST. PT HAD RESP TX'S THIS AM. TOOK AM MEDS. NO PAIN AT PRESENT. STOPPED BY ON HER WAY TO [place].
[2019-10-03 17:27] VITALS: BP 121/56
[2019-10-03 20:07] VITALS: BP 149/73
--- NOTE | 2019-10-04 01:57 | NUR ---
PT AMBULATING TO BATHROOM INDEPENDENTLY AND IS TOLERATING FAIR. DENIES PAIN. RESTING COMFORTABLY. NO NEEDS VOICED. CALL LIGHT WITHIN REACH. WILL CONTINUE TO PROVIDE FREQUENT OBSERVATION.
[2019-10-04 07:24] VITALS: BP 111/73
[2019-10-04 12:23] VITALS: BP 111/73
--- NOTE | 2019-10-04 12:24 | NUR ---
Following for d/c planning needs. Pt and spouse met with [facility] this morning. Pt and spouse are not ready for hospice at this time, and want to return home with home health. Pt was on service with [facility] prior to admission. Will ask facilities planner to fax orders to [facility] when available.
--- NOTE | 2019-10-04 12:37 | NUR ---
ASSUMED CARE OF THE PT AT 1125. PT IS ON 3.0 L OF O2. PT MAY BE DISCHARGING TODAY. IV IS DRY AND INTACT. PT IS UP AD GIORGIO WITH STANDBY ASSIST. SKIN IS INTACT. CALL LIGHT IS WITHIN REACH AND BED IN THE LOWEST POSITION AND PTS SPOUSE IS IN THE ROOM. WILL CONTINUE TO MONITOR THE PT.
[2019-10-04] MEDS ORDERED: AUGMENTIN 875-1 EACH PO (12:48)
[2019-10-04] MEDS ORDERED: SPIRIVA18 MCG INH (12:53)
--- NOTE | 2019-10-04 14:55 | NUR ---
ORDERS FOR EVAL AND TREAT. PER NURSING NOTES, Pt IS UP AD GIORGIO. SPOKE TO Pt WHO STATES HE HAS BEEN GETTING UP TO THE BATHROOM ON HIS OWN WITHOUT DIFFICULTY. OBSERVED HIM STAND AND WALK A SHORT DISTANCE IN HIS ROOM WITHOUT DIFFICULTY. Pt DECLINING A FORMAL P.T. EVAL BUT APPEARS SAFE FOR HOME
[2019-10-04 15:51] VITALS: BP 111/73
[2019-10-04 16:18] VITALS: BP 111/73
--- NOTE | 2019-10-04 17:20 | NUR ---
FAXED REFERRAL TO [facility] FOR O2 PT ON SERVICE AND PT'S 02 LITER FLOW HAS BEEN INCREASED FAXED O2 SAT EXERCISE RESULTS RECEIVED CONFIRMATION.
== END 2019-10-04 15:30 | disposition home health service (06) | DRG 871 ==
LOC: ER 10:32 → 3W 13:08 → EROBS 13:08 → 3W 19:55 → 4S 10-03 05:00 → ENTRNSPT 10-04 17:00
PROVIDERS: Emergency Medicine; Internal Medicine; Nurse Practitioner Family; ADMIT Hospitalist
DX: A41.9 Sepsis, unspecified organism (principal); J96.21 Acute and chronic respiratory failure with hypoxia; E43 Unspecified severe protein-calorie malnutrition; J18.9 Pneumonia, unspecified organism; J96.22 Acute and chronic respiratory failure with hypercapnia; I50.31 Acute diastolic (congestive) heart failure; J84.10 Pulmonary fibrosis, unspecified; J22 Unspecified acute lower respiratory infection; E11.9 Type 2 diabetes mellitus without complications; J43.9 Emphysema, unspecified; M95.4 Acquired deformity of chest and rib; D64.9 Anemia, unspecified; E88.09 Other disorders of plasma-protein metabolism, not elsewhere classified; R59.0 Localized enlarged lymph nodes; Z68.20 Body mass index [BMI] 20.0-20.9, adult; Z86.711 Personal history of pulmonary embolism; Z95.5 Presence of coronary angioplasty implant and graft; Z79.01 Long term (current) use of anticoagulants; Z90.2 Acquired absence of lung [part of]; Z95.828 Presence of other vascular implants and grafts; Z79.899 Other long term (current) drug therapy; Z87.891 Personal history of nicotine dependence; Z85.07 Personal history of malignant neoplasm of pancreas; Z85.820 Personal history of malignant melanoma of skin
CPT/HCPCS: 10100; 10879

== ENCOUNTER 2020-02-18 14:57 | Emergency (ER) | payer OTHER, BC ==
[~2020-02-18] VITALS: Ht 180.3 cm; Wt 54.4 kg
--- NOTE | ~2020-02-18 | EMS ---
[address] [address] EMS Patient Care Report Name: JIMMY RESENDIZ Room #: DEP ANGELA Kapoor#: [id number] Admission: 02/18/20 Attend Phys: Discharge: 02/18/20 Date of : 31 Report #: [id number] THIS REPORT FOR: //name// Report Transmitted: 02/18/2020 22:06 EMS Care Summary [facility] MED[facility] Incident [id number] @ 02/18/2020 14:17 Incident Location [address] [place] [address] Patient JIMMY RESENDIZ Male, 84 Years 1935 Patient Address [address] [place] [address] Patient History Other,Cancer, Unspecified, Patient Allergies No known allergies, Patient Medications Lasix, Zofran, Protonix, Eliquis, Xopenex, Plavix, Atrovent, Anoro, Hyoscyamine, Chief Complaint Altered LOC Disposition Transported No Lights/[place] Dispatch Reason Unconscious/Fainting Transported To [facility] Narrative [id number] arrived on scene to find the patient sitting on a couch in the care of bioinformatician. Patient's family advised that he has been having intermittent confusion and a gradual increase in weakness since Friday. Today they stated that patient became much more confused than he has been and would just stare [facility] [address] [place] [address] EMS Patient Care Report Name: JIMMY RESENDIZ Room #: DEP [facility]#: [id number] Admission: 02/18/20 Attend Phys: Discharge: 02/18/20 Date of : 31 Report #: [id number] off and not respond to anyone which is new for him. Patient advised that he did recognize he was weak and EMS observed that the patient would be able to answer questions one minute then unable to answer them the next minute and also witnessed the starring of during transport. Patient's advised that they had a CT performed on Friday which did not reveal anything and they have been in contact with his doctor about his confusion and they wanted him sent to the ER today. Patient had no other complaints during EMS care. Initial Vitals @14:30P: 80,CO: 0,SpO2: 100,AK Suspected: false @PTAP: 73,R: 16,BP: 152/77,Pain: 0/10,GCS: 15,Temp: 99.1F,SpO2: 99,Revised Trauma: 12, Assessments @14:27MENTAL:Person Oriented,Time Oriented,Place Oriented,Event Oriented,SKIN:No Abnormalities,HEENT:Head/Face: No Abnormalities,Eyes: No Abnormalities,Neck/Airway: No Abnormalities,LUNG SOUNDS:General: No Abnormalities,Left Upper: No Abnormalities,Right Upper: No Abnormalities,Left Lower: No Abnormalities,Right Lower: No Abnormalities,ABDOMEN:General: No Abnormalities,Left Upper: No Abnormalities,Right Upper: No Abnormalities,Left Lower: No Abnormalities,Right Lower: No Abnormalities,PELVIS//GI:No Abnormalities,EXTREMITIES:Left Arm: No Abnormalities,Right Arm: No Abnormalities,Left Leg: No Abnormalities,Right Leg: No Abnormalities,PULSE:NEURO:No Abnormalities, Impression Altered Mental Status Procedures @14:3012-Lead ECGResponse: UnchangedSucceeded Timeline PROCESS CONTROLLER,BP: 152/77 M,PULSE: 73,RR: 16 R,SPO2: 99 Ox,ETCO2: ,BG: ,PAIN: 0,GCS: 15, 14:16,Call Received 14:16,Psap Call 14:17,Dispatched 14:18,En Route 14:25,On Scene 14:27,At Patient 14:30,12-Lead ECG,Response: UnchangedSucceeded, 14:30,BP: / M,PULSE: 80,RR: R,SPO2: 100 Ox,ETCO2: ,BG: ,PAIN: ,GCS: , 14:47,Depart Scene 14:52,At Destination 15:07,Call Closed Disclaimer [address] [address] EMS Patient Care Report Name: JIMMY RESENDIZ Kvng Room #: DEP Antwon#: [id number] Admission: 02/18/20 Attend Phys: Discharge: 02/18/20 Date of : 31 Report #: [id number] v1.1 Copyright 2020 [employer] This EMS Care Summary contains data elements from the applicable legal record (which may be displayed differently). It is designed to provide pertinent information for the following purposes: continuity of care, clinical quality, and state data reporting. The complete legal record is available to ED staff and administrators of the receiving hospital in [facility]'s Patient Tracker. All data is provided "as is."
[~2020-02-18 14:57] MED LIST changes: +AUGMENTIN 875-1 EACH PO; +SPIRIVA18 MCG INH
[2020-02-18 15:53] LABS: HEMATOCRIT 28.5 % (42.0-52.0); HEMOGLOBIN 9.2 gm/dL (14.0-18.0); MCHC 32.1 g/dL (28.0-37.0); MCV 105.8 fL (80.0-100.0); PLATELET COUNT 220 thou/uL (150-400); RDW 14.6 % (10.5-14.5); WBC 7.3 thou/uL (4.0-11.0)
[2020-02-18 15:58] LABS: BUN 24 mg/dL (7-18); CALCIUM 8.3 mg/dL (8.5-10.1); CHLORIDE 96 mmol/L (98-107); CREATININE 0.9 mg/dL (0.7-1.3); GLUCOSE 116 mg/dL (74-106); POTASSIUM 4.1 mmol/L (3.5-5.1); SODIUM 137 mmol/L (136-145)
[2020-02-18 16:02] LABS: URINE BILIRUBIN NEGATIVE (Negative); URINE BLOOD NEGATIVE (Negative); URINE CLARITY CLEAR; URINE COLOR YELLOW; URINE GLUCOSE-RANDOM* NEGATIVE (Negative); URINE KETONES NEGATIVE (Negative); URINE LEUKOCYTES-REFLEX NEGATIVE (Negative); URINE NITRITE-REFLEX NEGATIVE (Negative); URINE PROTEIN (DIPSTICK) NEGATIVE (Negative)
[2020-02-18 16:04] LABS: ALBUMIN 3.1 g/dL (3.4-5.0); SGOT 25 U/L (15-37); SGPT 20 U/L (30-65); TOTAL BILIRUBIN 0.5 mg/dL (<0.1-1.0); TOTAL PROTEIN 6.6 g/dL (6.4-8.2)
[2020-02-18 16:10] LABS: CO2 > 45 mmol/L (21-32)
[2020-02-18 16:39] LABS: HCO3 47.3 mmol/L (22.0-26.0); PCO2 93.1 mmHg (35.0-45.0); PO2 299.3 mmHg (80.0-100.0); pH 7.324 (7.360-7.450); sO2 99.6 % (92.0-98.0)
[2020-02-18 16:55] LABS: MACROCYTES 1+
[2020-02-18] MEDS ORDERED: AZITHROMYCIN 2250 MG PO (18:19)
[2020-02-18] MEDS ORDERED: PREDNISONE 20 M20 MG PO (18:19)
[2020-02-18 18:40] VITALS: BP 146/56
--- NOTE | 2020-02-19 10:59 | EKG ---
[facility] [place] [address] ELECTROCARDIOGRAM REPORT Name: JIMMY RESENDIZ [id number] Admission: 02/18/20 Attend Phys: Discharge: 02/18/20 Date of : 31 Report #: [id number] THIS REPORT FOR: cc: NICO - Scarlett family physician/PCP NICO - Scarlett family physician/PCP Cheng Clark MD ~ THIS REPORT FOR: //name// [facility] ED Test Date: 2020-02-18 Test Time: 15:57:14 Pat Name: JIMMY RESENDIZ Department: Room: Gender: Tow Truck Driver: [facility] : 1935 Requested By: June Persaud Order Number: [id number] MD: Cheng Clark Measurements Intervals [place] Rate: 71 P: 41 DC: 144 QRS: 19 QRSD: 95 T: 34 QT: 410 QTc: 446 Interpretive Statements Sinus rhythm Atrial premature complexes Probable left atrial enlargement RSR' in V1 or V2, probably normal variant Nonspecific ST segment abnormalities Compared to ECG 09/27/2019 10:40:53 RSR' in V1 or V2 now present Myocardial infarct finding now present T-wave abnormality no longer present Electronically Signed On 02-19-2020 10:57:40 CDT by Cheng Clark [email or web address] <ELECTRONICALLY SIGNED> By: Cheng Clark MD 02/19/20 1057 1557 1557 Cheng Clark MD /EPI
== END 2020-02-18 19:01 | disposition home or self-care (01) ==
LOC: ER 14:57
PROVIDERS: Physician Assistant
DX: R41.82 Altered mental status, unspecified (principal); R06.89 Other abnormalities of breathing; R06.00 Dyspnea, unspecified; E11.9 Type 2 diabetes mellitus without complications; J44.9 Chronic obstructive pulmonary disease, unspecified; Z95.5 Presence of coronary angioplasty implant and graft; Z86.711 Personal history of pulmonary embolism; Z85.07 Personal history of malignant neoplasm of pancreas

== ENCOUNTER → 2020-03-20 | Outpatient (CLI) | payer OTHER, BC ==
[~2020-03-20] MED LIST changes: +AZITHROMYCIN 2250 MG PO
--- NOTE | 2020-03-23 09:20 | SLE ---
[facility] [place] [address] POLYSOMNOGRAPHY STUDY Name: JIMMY RESENDIZ Room #: [facility]#: [id number] Admission: 03/20/20 Attend Phys: Stan Ornelas MD Discharge: Date of : 31 Report #: [id number] THIS REPORT FOR: //name// CC: Stan Ornelas [facility] physician/PCP HERACLIO HOLLY MD DATE OF SERVICE: 03/20/2020 SLEEP STUDY REFERRING PHYSICIAN: Dr. Heraclio Holly. The patient is an 84-year-old who weighs 140 pounds with a BMI of 19. The patient's [place] score is 15. The patient has chronic hypoxic respiratory failure and has been on 4 liters of oxygen. The patient has chronic obstructive airway disease and pulmonary embolism and also had hypercapnic respiratory failure. This sleep study was performed at [facility]. During the night study, patient spent 428 minutes in bed and slept for 260 minutes with a low sleep efficiency of 61%. Sleep latency was 5.1 minutes with an absent REM sleep. Overall, sleep architecture showed increased stage 1 and stage 2 sleep, absent slow wave and absent REM sleep. During the night of the study, patient had no apneas, but 66 hypopneas. The patient's AHI was 15.2 per hour. Supine AHI of 15.2 per hour as well. REM sleep was not observed. It was difficult to score the sleep study as patient was taken off of 4 liters of oxygen and this study was initially started on RA. However, patient's oxygen saturation immediately dropped in the high 60s. As a result, patient was placed on 1 liter of oxygen. At 1 liter, patient slept for 52 minutes and patient's AHI was 36 per hour. The patient's oxygen flow was increased all the way up to 3 liters, especially when patient went to the bathroom and had more hypoxia with exercise. At higher levels of oxygen, AHI did decrease. Use of supplemental oxygen may have underestimated overall the severity of sleep apnea due to underscpring of hypopneas. EKG monitoring revealed paroxysmal irregular rhythm consistent with atrial fibrillation. The patient's average heart rate was 85 beats per minute. No clinically significant PLM seen. There was not enough time to initiate CPAP or BiPAP. IMPRESSION: [facility] [address] [place] [address] POLYSOMNOGRAPHY STUDY Name: JIMMY RESENDIZ Room #: [facility]#: [id number] Admission: 03/20/20 Attend Phys: Stan Ornelas MD Discharge: Date of : 31 Report #: [id number] 1. Moderate obstructive sleep apnea, but could be severe as well. Since the study could not be continued on room air due to severity of hypoxia, hypopneas may have been underscored. The patient's AHI for the entire night was 15.2 per hour and while on RA was 37.5/hr and on 1 Litre of oxygen, it was 36.5/hr. 2. Reduced sleep efficiency resulting from sleep maintenance insomnia. 3. No clinically significant periodic limb movements. 4. Abnormal EKG with suspected paroxysmal Atrial Fibrillation. RECOMMENDATIONS: 1. The patient should return to the sleep lab for a CPAP/BiPAP titration. 2. Once optimal PAP pressure is achieved, then follow up in 4-6 weeks to assess compliance and to document clinical improvement. 3. Avoid CONSERVATION POLICY ANALYST depressants. 4. Cautioned regarding driving until symptoms of sleep apnea resolve with PAP therapy. 5. The patient will likely need oxygen with PAP therapy. This will be determined on the night of the study. 6. Follow up with cardiology regarding abnormal EKG. <ELECTRONICALLY SIGNED> By: Stan Ornelas MD 03/23/20919 06 28 Stan Ornelas MD /nt
== END ==
LOC: SLEEPLAB 03-10 10:57
PROVIDERS: ATTEND Internal Medicine Critical Care Medicine
DX: G47.33 Obstructive sleep apnea (adult) (pediatric) (principal); I10 Essential (primary) hypertension

== ENCOUNTER 2020-03-24 11:23 | Emergency (ER) | payer OTHER, BC ==
[~2020-03-24] VITALS: Ht 177.8 cm; Wt 54.4 kg
--- NOTE | ~2020-03-24 | EMS ---
[address] [address] EMS Patient Care Report Name: JIMMY RESENDIZ Room #: PRE MИван#: [id number] Admission: Attend Phys: Discharge: Date of : 31 Report #: [id number] THIS REPORT FOR: //name// Report Transmitted: 03/24/2020 11:04 EMS Care Summary [facility] Incident [id number] @ 03/24/2020 10:50 Incident [address] [place] [address] Patient JIMMY ROMANO Male, 84 Years 1935 Patient Address [address] [place] [address] Patient History Atrial Fibrillation,Idiopathic Pulmonary Fibrosis (IPF), Patient Allergies No known allergies, Patient Medications Albuterol, Apixaban, Furosemide, Ondansetron, Amiodarone, Chief Complaint Unresponsive Disposition Transported No Lights/Levan Dispatch Reason Unconscious/Fainting Transported To [facility] Narrative [id number] was dispatched to the listed location for a code 1 unconscious. Upon arrival patient was sitting at a semi fowlers angle in the recliner in the care of his and appiris. stated that the previous day and that morning COMMERCIAL INTERN, her had been complaining of nausea and generalized [address] [address] EMS Patient Care Report Name: JIMMY RESENDIZ Room #: PRE Antwon#: [id number] Admission: Attend Phys: Discharge: Date of : 31 Report #: [id number] weakness. stated that they were eating breakfast that morning around 08:30am and then her walked over to the couch to take a nap around 09:15am, which was the last known normal. stated that he was unresponsive and she could not wake him so she called 911. Woody EZ[employer] was first on scene with a triage critical but stated his V/S were stable he was just unresponsive. Upon a secondary exam by EMS, the patients eyes were PERRL but he had a stiff neck that appeared cocked to the right. stated that he had just started a new medication, amiodarone, that morning and denied any recent trauma. stated that the patient is always on home O2. When fire and EMS took patients home O2 off for a short period of time to move him to the cot and switch his O2 to EMS's, his SPO2 quickly dropped to around 82%. Once EMS placed patient back on O2 his O2 climbed back up to around 90%, a NRB and ETCO2 was placed on the patient and SPO2 continued to increase to 99%. En route, EMS took a [employer] van driver helper, started an IV and did a 12L. Patient was mostly unresponsive but would be in and out of painful responsive for a short while. Initial Vitals @PTAP: 85,BP: 117/73,CO: 3,SpO2: 98, @11:10P: 103,BP: 119/77,SpO2: 98, @PTAP: 90,BP: 110/84, @11:17P: 123,CO: 0,SpO2: 95,[place] Suspected: false @11:07P: 124,R: 16,Pain: 0/10,GCS: 4,Temp: 97F,Glucose: 161,SpO2: 99, Assessments @11:43MENTAL:Unresponsive,SKIN:Diaphoresis,Pale,HEENT:Neck/Airway: Other,Head/Face: No Abnormalities,LUNG SOUNDS:General: No Abnormalities,Left Upper: No Abnormalities,Right Upper: No Abnormalities,Left Lower: No Abnormalities,Right Lower: No Abnormalities,ABDOMEN:General: No Abnormalities,Left Upper: No Abnormalities,Right Upper: No Abnormalities,Left Lower: No Abnormalities,Right Lower: No Abnormalities,PELVIS//GI:No Abnormalities,EXTREMITIES:Left Arm: No Abnormalities,Right Arm: No Abnormalities,Left Leg: No Abnormalities,Right Leg: No Abnormalities,PULSE:NEURO:No Abnormalities, Impression Altered Mental Status Procedures @11:1712-Lead ECG@11:18Saline Lock 5cc (18 ga) Site: Antecubital-RightResponse: UnchangedSucceeded@11:10Oxygen FlowRate: 10 Device: Non Re-breather Mask (NRB) Response: ImprovedSucceeded Timeline COMMERCIAL INTERN,BP: 117/73 M,PULSE: 85,RR: R,SPO2: 98 Ox,ETCO2: ,BG: ,PAIN: ,GCS: , [address] [address] EMS Patient Care Report Name: JIMMY RESENDIZ Room #: PRE M.R.#: [id number] Admission: Attend Phys: Discharge: Date of : 31 Report #: [id number] COMMERCIAL INTERN,BP: 110/84 M,PULSE: 90,RR: R,SPO2: Ox,ETCO2: ,BG: ,PAIN: ,GCS: , 10:49,Call Received 10:49,Psap Call 10:50,Dispatched 10:50,En Route 10:59,On Scene 11:01,At Patient 11:07,BP: / M,PULSE: 124,RR: 16 R,SPO2: 99 Ox,ETCO2: ,B,PAIN: 0,GCS: 4, 11:10,Oxygen FlowRate: 10 Device: Non Re-breather Mask (NRB) Response: ImprovedSucceeded, 11:10,BP: 119/77 M,PULSE: 103,RR: R,SPO2: 98 Ox,ETCO2: ,BG: ,PAIN: ,GCS: , 11:12,Depart Scene 11:16,At Destination 11:17,12-Lead ECG, 11:17,BP: / M,PULSE: 123,RR: R,SPO2: 95 Ox,ETCO2: ,BG: ,PAIN: ,GCS: , 11:18,Saline Lock 5cc 18 ga Site: Antecubital-Right,Response: UnchangedSucceeded, 11:46,Call Closed Disclaimer v1.1 Copyright 2020 [employer] This EMS Care Summary contains data elements from the applicable legal record (which may be displayed differently). It is designed to provide pertinent information for the following purposes: continuity of care, clinical quality, and state data reporting. The complete legal record is available to ED staff and administrators of the receiving hospital in [employer]'s Patient Tracker. All data is provided "as is."
[2020-03-24 11:44] LABS: HEMATOCRIT 34.5 % (42.0-52.0); HEMOGLOBIN 10.8 gm/dL (14.0-18.0); MCH 33.5 pg (26.0-34.0); MCHC 31.3 g/dL (28.0-37.0); MCV 107.1 fL (80.0-100.0); PLATELET COUNT 197 thou/uL (150-400); RBC 3.22 mil/uL (4.50-6.00); RDW 14.6 % (10.5-14.5); WBC 5.2 thou/uL (4.0-11.0)
[2020-03-24 11:49] LABS: BUN 28 mg/dL (7-18); CALCIUM 8.6 mg/dL (8.5-10.1); CHLORIDE 96 mmol/L (98-107); CREATININE 1.1 mg/dL (0.7-1.3); GLUCOSE 129 mg/dL (74-106); POTASSIUM 4.5 mmol/L (3.5-5.1); SODIUM 135 mmol/L (136-145)
[2020-03-24 11:55] LABS: ALBUMIN 3.1 g/dL (3.4-5.0); DIRECT BILIRUBIN 0.2 mg/dL (<0.1-0.2); SGOT 32 U/L (15-37); SGPT 26 U/L (30-65); TOTAL BILIRUBIN 0.7 mg/dL (0.2-1.0); TOTAL PROTEIN 6.7 g/dL (6.4-8.2)
[2020-03-24 12:00] LABS: CO2 > 45 mmol/L (21-32)
[2020-03-24 12:11] LABS: URINE BLOOD TRACE (Negative); URINE CLARITY CLEAR; URINE COLOR YELLOW; URINE GLUCOSE-RANDOM* NEGATIVE (Negative); URINE KETONES NEGATIVE (Negative); URINE LEUKOCYTES-REFLEX NEGATIVE (Negative); URINE NITRITE-REFLEX NEGATIVE (Negative); URINE PROTEIN (DIPSTICK) 2+ (Negative); URINE SPECIFIC GRAVITY >= 1.030 (1.005-1.035)
[2020-03-24 12:34] LABS: URINE BILIRUBIN NEGATIVE (Negative)
[2020-03-24 12:35] LABS: ICTOTEST (BILI CONFIRMATORY) Negative (Negative)
[2020-03-24 13:18] LABS: SQUAMOUS 0-3 Few /LPF (0-3)
[2020-03-24 13:19] LABS: BACTERIA-REFLEX 1-9 Few /HPF (None Seen); HYALINE CASTS 4-10 Moderate /LPF (None Seen); URINE RBC 0-2 Rare /HPF (0-2); URINE WBC-REFLEX 0-5 Rare /HPF (0-5)
[2020-03-24 13:20] LABS: CRYSTALS None Seen /LPF (None Seen)
[2020-03-24 13:31] LABS: ABSOLUTE NEUTROPHILS 3.4 thou/uL (1.4-8.2); ANISOCYTOSIS 1+; MACROCYTES 1+
[2020-03-24 13:46] VITALS: BP 98/56
--- NOTE | 2020-03-24 14:08 | EKG ---
[facility] [place] [address] ELECTROCARDIOGRAM REPORT Name: HUMBERTO RESENDIZLAURIE MONTERROSO Room #: [facility]#: [id number] Admission: 03/24/20 Attend Phys: Discharge: Date of : 31 Report #: [id number] THIS REPORT FOR: cc: John Dominguez MD, Bernard O. MD Couchonnal, Luis F. MD ~ THIS REPORT FOR: //name// [facility] ED Test Date: 2020-03-24 Test Time: 11:25:14 Pat Name: JIMMY RESENDIZ Department: Room: Gender: Restaurant General Manager: [facility] : 1935 Requested By: Izabela Rivas Order Number: [id number] : Garrett Keith Measurements Intervals [place] Rate: 120 P: MI: QRS: 35 QRSD: 103 T: 207 QT: 346 QTc: 489 Interpretive Statements Atrial fibrillation RSR' in V1 or V2, probably normal variant Nonspecific T abnormalities, lateral leads Compared to ECG 02/18/2020 15:57:14 Electronically Signed On 03-24-2020 14:07:40 CDT by Garrett Keith [email or web address] <ELECTRONICALLY SIGNED> By: Garrett Keith MD 03/24/20 1407 1125 1125 Garrett Keith MD /EPI
== END 2020-03-24 16:40 ==
LOC: ER 11:23
PROVIDERS: Emergency Medicine
DX: I46.9 Cardiac arrest, cause unspecified (principal); R06.89 Other abnormalities of breathing; R09.02 Hypoxemia; E11.9 Type 2 diabetes mellitus without complications; J44.9 Chronic obstructive pulmonary disease, unspecified; Z79.899 Other long term (current) drug therapy; Z86.711 Personal history of pulmonary embolism; Z95.5 Presence of coronary angioplasty implant and graft; Z90.89 Acquired absence of other organs